=== PATIENT | female | born 2000 ===

== ENCOUNTER 2023-03-31 22:20 | Emergency (ER) | payer OTHER, SELFPAY ==
--- NOTE | 2023-03-31 | ECG_ITS ---
Test Reason : SEIZURE Blood Pressure : / mmHG Vent. Rate : 112 BPM Atrial Rate : 112 BPM P-R Int : 136 ms QRS Dur : 082 ms QT Int : 340 ms P-R-T Axes : 045 033 016 degrees QTc Int : 464 ms Sinus tachycardia Nonspecific T wave abnormality Abnormal ECG No previous ECGs available Referred By: Generic ED Physician Electronically Signed By:KASSANDRA BROCK
[2023-03-31 22:31] VITALS: BP 138/87; PULSE 111; RESP 20; TEMP 37; O2SAT 99; BMI 37.2
[2023-03-31 22:42] LABS: Glucose, Whole Blood 260 mg/dL (60-115)
[2023-03-31 22:53] LABS: MANUAL DIFF FLAG NO
[2023-03-31 22:55] LABS: Basophils Absolute Auto 0.1 X10*3/uL (0.0-0.2); Basophils Percent Auto 0.4 % (0-2); Eosinophils Absolute Auto 0.1 X10*3/uL (0.0-0.4); Eosinophils Percent Auto 0.8 % (0-4); Hematocrit 38.9 % (37.0-47.0); Imm Gran Abs Auto 0.04 X10*3/uL (0.00-0.03); Imm Gran Pct Auto 0.3 % (0.0-0.4); Lymphocytes Percent Auto 27.1 % (20-40); Mean Corpuscular HGB Conc 33.4 g/dl (31.0-35.0); Mean Corpuscular Hemoglobin 28.9 pg (27.0-33.0); Mean Corpuscular Volume 86.4 fL (80.0-98.0); Mean Platelet Volume 12.4 fL (9.4-12.3); Monocytes Absolute Auto 0.8 X10*3/uL (0.1-1.2); Monocytes Percent Auto 5.5 % (2-11); Neutrophils Absolute Auto 9.7 x10*3/uL (2.0-8.3); Neutrophils Percent Auto 65.9 % (45-73); Platelet Count 314 X10*3/uL (160-400); Red Cell Distribution Width 12.8 % (11.0-16.0); White Blood Count 14.7 X10*3/uL (4.8-10.8)
[2023-03-31 22:57] LABS: VBG Base Excess 1.7 mmol/L; VBG HCO3 26 mmol/L (22-26); VBG pCO2 42 mmHg; VBG pO2 49 mmHg
[2023-03-31 22:57] LABS: Venous Blood Gas Refer to POC result
[2023-03-31 23:07] LABS: Glucose, Whole Blood 231 mg/dL (60-115)
[2023-03-31 23:12] LABS: Lactic Acid 2.5 mmol/L (0.5-2.0)
--- NOTE | 2023-03-31 23:13 | ED.SEIZURE ---
HPI - Seizure General Chief Complaint: Seizure Stated Complaint: seizures Time Seen by Provider: 03/31/23 22:52 History of Present Illness HPI Narrative: patient is a 29 with a history of seizures. Witness by roommate to have a seizure. Patient is not awake during that time had shaking in the right side for the bystander. She has a history of diabetes. Baseline is on Tri see the 80 units twice a day. On top of it patient takes 72 units of Humalog with each meal. Patient's family gave her 80 units of insulin after noticing the sugar to be high high. Patient unable to give detailed stated that she normally gets seizures but is not on any seizure medication. She has been evaluated by [facility] in the past. Her neurologist is Dr. Momin At [facility] [place]. Patient denies any pain on urination. Related Data Allergies Allergy/AdvReac Type Severity Reaction Status Date / Time No Known Allergies Allergy Verified 03/31/23 22:30 [No Known Allergies*] Review of Systems Review of Systems: Positive generalized malaise Yes all other systems are reviewed and are negative [facility] Past Medical History Attestation statement: The following information was validated with the patient. Social History Social History Advance Directives: No Advance Directives Information Provided: Yes Physical Exam Vital Signs: Vital Signs: Last Vital Signs Temp 98.6 F 03/31/23 22:31 Pulse 111 H 03/31/23 22:31 Resp 20 03/31/23 22:31 BP 138/87 03/31/23 22:31 Pulse Ox 99 03/31/23 22:31 O2 Del Method Room Air 03/31/23 22:31 BMI result Body Mass Index 37.2 Appearance: Alert. Oriented X3. No acute distress. Eyes: Pupils equal, round and reactive to light. ENT: Pharynx normal. Neck: Normal inspection. Neck supple. No lymph nodes noted. No crepitus CVS: Normal heart rate and rhythm. Pulses normal. Normal S1 and S2 Respiratory: No respiratory distress. Breath sounds normal. No Wheezing. No rales Abdomen: Soft and nontender. No rigidity. No distention. good BS x4 Skin: Skin warm and dry. Normal skin color. Normal skin turgor. Extremities: No lower extremity edema. Neurovascular intact to all extremities. No Lacerations. No Rash Neuro: Oriented X 3. No motor deficit. No sensory deficit. Moving all extermities. No slurred speech Medications Administered Discontinued Medications Generic Name Dose Route Start Last Admin Trade Name Marcellus PRN Reason Stop Dose Admin Sodium Chloride 1,000 mls @ 999 mls/hr 03/31/23 23:15 04/01/23 00:19 Ns IV 04/01/23 00:15 Infused .Q1H1M DARON Infusion Sodium Chloride 1,000 mls @ 999 mls/hr 03/31/23 23:15 04/01/23 00:19 Ns IV 04/01/23 00:15 Infused .Q1H1M DARON Infusion Medical Decision Making Medical Decision Making MDM Narrative: Patient had questionable seizure on a daily basis per her. She has seen a neurologist at [facility]. Normally goes to [facility] [place]. However patient had not been on any medication. Per old record was obtained from [facility] after consent was obtained. She had had multiple CT scan done at [facility] [place] there were all negative. Patient had multiple prolactin level done all were negative except for 1. had MRI done which were negative. Had E 48 hour EEG done no epileptic foci was noted. Patient had a diagnosis of nonepileptic seizure. Her electrolytes here were normal. Patient's lactate was 2.4. Not consistent with having a grand mal seizure. Patient fair appearing no distress. Mental status back to baseline. Electrolytes unremarkable. Will discharge patient home. Will nevertheless place patient on seizure precaution. Have patient follow-up with her neurologist on an outpatient basis. More likely patient has nonepileptic seizure causing her symptoms. Differential Diagnosis Differential Diagnoses: The differential diagnosis associated with the presentation includes Seizure, electrolyte disturbance, nonepileptic seizures Admission/Observation Consideration of admission/observation: Escalation of care including admission/observation considered no need for admission after old record was obtained Lab Data [facility] Lab Attestation statement: I reviewed the patient's lab results. 03/31/23 22:44 03/31/23 22:44 Labs: Lab Results 03/31/23 03/31/23 03/31/23 Range/Units 22:30 22:44 22:44 WBC 14.7 H (4.8-10.8) X10*3/uL RBC 4.50 (4.20-5.50) X10*6/uL Hgb 13.0 (12.0-16.0) g/dl Hct 38.9 (37.0-47.0) % MCV 86.4 (80.0-98.0) fL MCH 28.9 (27.0-33.0) pg MCHC 33.4 (31.0-35.0) g/dl RDW 12.8 (11.0-16.0) % Plt Count 314 (160-400) X10*3/uL MPV 12.4 H (9.4-12.3) fL Immature Gran % (Auto) 0.3 (0.0-0.4) % Neut % (Auto) 65.9 (45-73) % Lymph % (Auto) 27.1 (20-40) % [place] % (Auto) 5.5 (2-11) % Eos % (Auto) 0.8 (0-4) % Baso % (Auto) 0.4 (0-2) % Lymph # (Auto) 4.0 (1.2-4.9) X10*3/uL [place] # (Auto) 0.8 (0.1-1.2) X10*3/uL Eos # (Auto) 0.1 (0.0-0.4) X10*3/uL Baso # (Auto) 0.1 (0.0-0.2) X10*3/uL Abs Immat Gran (auto) 0.04 H (0.00-0.03) X10*3/uL Absolute Neuts (auto) 9.7 H (2.0-8.3) x10*3/uL Absolute Nucleated RBC 0.000 (0.0-0.012) X10*3/uL Nucleated RBC % (auto) 0.0 (0.0-0.2) /100WBC VBG pH (7.32-7.43) VBG pCO2 mmHg VBG pO2 mmHg VBG HCO3 (22-26) mmol/L VBG O2 Saturation % VBG Base Excess mmol/L Sodium 138 (135-145) mmol/L Potassium 3.5 (3.3-5.1) mmol/L Chloride 102 (96-108) mmol/L Carbon Dioxide 25 (22-29) mmol/L Anion Gap 15 (12-20) BUN 9 (9-16) mg/dL Creatinine 0.79 (0.5-1.4) mg/dL Estim Creat Clear Calc 128.4 Estimated GFR > 60 POC Glucose 260 H (60-115) mg/dL Random Glucose 285 H (60-115) mg/dL Lactic Acid (0.5-2.0) mmol/L Lactic Acid F/U @ 2Hr (0.5-2.0) mmol/L Calcium 10.1 (8.4-10.2) mg/dL Total Bilirubin 0.2 (0.0-1.0) mg/dL AST 69 H (5-31) U/L ALT 63 H (0-31) U/L Alkaline Phosphatase 111 (39-117) U/L Total Protein 7.8 (6.5-8.0) g/dL Albumin 3.9 (3.5-5.0) g/dL Beta HCG, Quant mIU/mL 03/31/23 03/31/23 03/31/23 Range/Units 22:44 22:44 22:49 WBC (4.8-10.8) X10*3/uL RBC (4.20-5.50) X10*6/uL Hgb (12.0-16.0) g/dl Hct (37.0-47.0) % MCV (80.0-98.0) fL MCH (27.0-33.0) pg MCHC (31.0-35.0) g/dl RDW (11.0-16.0) % Plt Count (160-400) X10*3/uL MPV (9.4-12.3) fL Immature Gran % (Auto) (0.0-0.4) % Neut % (Auto) (45-73) % Lymph % (Auto) (20-40) % [place] % (Auto) (2-11) % Eos % (Auto) (0-4) % Baso % (Auto) (0-2) % Lymph # (Auto) (1.2-4.9) X10*3/uL [place] # (Auto) (0.1-1.2) X10*3/uL Eos # (Auto) (0.0-0.4) X10*3/uL Baso # (Auto) (0.0-0.2) X10*3/uL Abs Immat Gran (auto) (0.00-0.03) X10*3/uL Absolute Neuts (auto) (2.0-8.3) x10*3/uL Absolute Nucleated RBC (0.0-0.012) X10*3/uL Nucleated RBC % (auto) (0.0-0.2) /100WBC VBG pH 7.40 (7.32-7.43) VBG pCO2 42 mmHg VBG pO2 49 mmHg VBG HCO3 26 (22-26) mmol/L VBG O2 Saturation 78.0 % VBG Base Excess 1.7 mmol/L Sodium (135-145) mmol/L Potassium (3.3-5.1) mmol/L Chloride (96-108) mmol/L Carbon Dioxide (22-29) mmol/L Anion Gap (12-20) BUN (9-16) mg/dL Creatinine (0.5-1.4) mg/dL Estim Creat Clear Calc Estimated GFR POC Glucose (60-115) mg/dL Random Glucose (60-115) mg/dL Lactic Acid 2.5 H* (0.5-2.0) mmol/L Lactic Acid F/U @ 2Hr (0.5-2.0) mmol/L Calcium (8.4-10.2) mg/dL Total Bilirubin (0.0-1.0) mg/dL AST (5-31) U/L ALT (0-31) U/L Alkaline Phosphatase (39-117) U/L Total Protein (6.5-8.0) g/dL Albumin (3.5-5.0) g/dL Beta HCG, Quant < 2 mIU/mL 03/31/23 04/01/23 04/01/23 Range/Units 23:04 00:44 01:06 WBC (4.8-10.8) X10*3/uL RBC (4.20-5.50) X10*6/uL Hgb (12.0-16.0) g/dl Hct (37.0-47.0) % MCV (80.0-98.0) fL MCH (27.0-33.0) pg MCHC (31.0-35.0) g/dl RDW (11.0-16.0) % Plt Count (160-400) X10*3/uL MPV (9.4-12.3) fL Immature Gran % (Auto) (0.0-0.4) % Neut % (Auto) (45-73) % Lymph % (Auto) (20-40) % [place] % (Auto) (2-11) % Eos % (Auto) (0-4) % Baso % (Auto) (0-2) % Lymph # (Auto) (1.2-4.9) X10*3/uL [place] # (Auto) (0.1-1.2) X10*3/uL Eos # (Auto) (0.0-0.4) X10*3/uL Baso # (Auto) (0.0-0.2) X10*3/uL Abs Immat Gran (auto) (0.00-0.03) X10*3/uL Absolute Neuts (auto) (2.0-8.3) x10*3/uL Absolute Nucleated RBC (0.0-0.012) X10*3/uL Nucleated RBC % (auto) (0.0-0.2) /100WBC VBG pH (7.32-7.43) VBG pCO2 mmHg VBG pO2 mmHg VBG HCO3 (22-26) mmol/L VBG O2 Saturation % VBG Base Excess mmol/L Sodium (135-145) mmol/L Potassium (3.3-5.1) mmol/L Chloride (96-108) mmol/L Carbon Dioxide (22-29) mmol/L Anion Gap (12-20) BUN (9-16) mg/dL Creatinine (0.5-1.4) mg/dL Estim Creat Clear Calc Estimated GFR POC Glucose 231 H 110 (60-115) mg/dL Random Glucose (60-115) mg/dL Lactic Acid (0.5-2.0) mmol/L Lactic Acid F/U @ 2Hr 1.4 (0.5-2.0) mmol/L Calcium (8.4-10.2) mg/dL Total Bilirubin (0.0-1.0) mg/dL AST (5-31) U/L ALT (0-31) U/L Alkaline Phosphatase (39-117) U/L Total Protein (6.5-8.0) g/dL Albumin (3.5-5.0) g/dL Beta HCG, Quant mIU/mL Independent Interpretation I performed an independent interpretation of an: EKG Interpretation: sinus heart rate is 110 GA QRS QTC within normal limits there is LVH noted. Independent Historian Clinical information obtained from an independent historian. History obtained from or confirmed by: Spouse External Record Review External record reviewed: Office record and Outside ED record Patient's old record from [facility] was reviewed Chronic Conditions history of nonepileptic seizure Discharge Plan Discharge Clinical Impression: Generalized seizure Patient Disposition: Home, Self-Care Instructions: Recurrent Seizures in Adults (ED) Additional Instructions: no driving. No swimming no activities of [place] danger have a seizure at that time. Referrals: Physician,Unknown J [Primary Care Provider] - ( please follow-up with your neurologist on an outpatient basis) Print Language: Filipino
[2023-03-31 23:14] LABS: Alanine Aminotransferase 63 U/L (0-31); Albumin Level 3.9 g/dL (3.5-5.0); Alkaline Phosphatase 111 U/L (39-117); Anion Gap 15 (12-20); Aspartate Amino Transferase 69 U/L (5-31); Bilirubin Total 0.2 mg/dL (0.0-1.0); Blood Urea Nitrogen 9 mg/dL (9-16); Calcium 10.1 mg/dL (8.4-10.2); Carbon Dioxide 25 mmol/L (22-29); Chloride 102 mmol/L (96-108); Creatinine Clr Calc Pharmacy 128.4; Estimated Glomerular Filt Rate > 60; Glucose Random 285 mg/dL (60-115); Potassium 3.5 mmol/L (3.3-5.1); Sodium 138 mmol/L (135-145); Total Protein 7.8 g/dL (6.5-8.0)
[2023-03-31] MEDS: 0.9 % Sodium Chloride 1,000 ML 999 ML IV ×2 (23:17)
[2023-03-31 23:22] LABS: HCG Quantitative < 2 mIU/mL
[2023-04-01 00:48] LABS: Glucose, Whole Blood 110 mg/dL (60-115)
[2023-04-01 00:50] LABS: Reflex Lactate? Lactic Acid Added
--- NOTE | 2023-04-01 01:03 | PC.NURSE ---
Pt given food per Dr. Mata request.
[2023-04-01 01:22] LABS: ~Lactic Acid-LAB USE ONLY 1.4 mmol/L (0.5-2.0)
[2023-04-01 02:53] VITALS: BP 122/72; PULSE 99; RESP 19; O2SAT 98
== END 2023-04-01 02:54 | disposition home or self-care (01) ==
PROVIDERS: Emergency Provider Emergency Medicine Emergency Medical Services
DX: R56.9 Unspecified convulsions (principal); R00.0 Tachycardia, unspecified; Z79.899 Other long term (current) drug therapy
CPT/HCPCS: 36415; 80053; 82803; 82947; 83605; 84702; 85025; 93005; 99284

== ENCOUNTER 2023-04-03 19:11 | Emergency (ER) | payer OTHER, SELFPAY ==
--- NOTE | ~2023-04-03 | XR_ITS ---
EXAMINATION: XR CHEST CLINICAL INFORMATION: Cough COMPARISON: None available. TECHNIQUE: 2 views of the chest were obtained. FINDINGS: The lungs are clear with no focal consolidation. No evidence of pneumothorax, pulmonary edema, or pleural effusions. The cardiomediastinal silhouette is unremarkable. No acute osseous findings. XR/XR chest 2V IMPRESSION: No acute cardiopulmonary findings.
[2023-04-03 19:13] VITALS: BP 129/90; PULSE 120; O2SAT 100
[2023-04-03 19:34] VITALS: BP 132/90; PULSE 120; RESP 20; TEMP 36.7; O2SAT 100
[2023-04-03 19:44] VITALS: BP 130/90; PULSE 120; O2SAT 100
[2023-04-03 19:46] LABS: Glucose, Whole Blood 91 mg/dL (60-115)
[2023-04-03 19:58] VITALS: BP 132/93; PULSE 126; RESP 25; TEMP 36.7; O2SAT 98; BMI 38.6
[2023-04-03 19:59] LABS: MANUAL DIFF FLAG NO
[2023-04-03 20:01] LABS: Basophils Absolute Auto 0.1 X10*3/uL (0.0-0.2); Basophils Percent Auto 0.4 % (0-2); Eosinophils Absolute Auto 0.1 X10*3/uL (0.0-0.4); Eosinophils Percent Auto 0.6 % (0-4); Hematocrit 42.3 % (37.0-47.0); Hemoglobin 13.8 g/dl (12.0-16.0); Imm Gran Abs Auto 0.08 X10*3/uL (0.00-0.03); Imm Gran Pct Auto 0.4 % (0.0-0.4); Lymphocytes Absolute Auto 3.3 X10*3/uL (1.2-4.9); Mean Corpuscular HGB Conc 32.6 g/dl (31.0-35.0); Mean Corpuscular Hemoglobin 28.1 pg (27.0-33.0); Mean Corpuscular Volume 86.2 fL (80.0-98.0); Monocytes Absolute Auto 1.2 X10*3/uL (0.1-1.2); Monocytes Percent Auto 6.4 % (2-11); Neutrophils Absolute Auto 14.5 x10*3/uL (2.0-8.3); Neutrophils Percent Auto 75.2 % (45-73); Platelet Count 338 X10*3/uL (160-400); Red Blood Count 4.91 X10*6/uL (4.20-5.50); Red Cell Distribution Width 12.8 % (11.0-16.0); White Blood Count 19.3 X10*3/uL (4.8-10.8)
[2023-04-03 20:15] LABS: Alanine Aminotransferase 61 U/L (0-31); Alkaline Phosphatase 99 U/L (39-117); Anion Gap 12 (12-20); Aspartate Amino Transferase 67 U/L (5-31); Bilirubin Total 0.3 mg/dL (0.0-1.0); Blood Urea Nitrogen 7 mg/dL (9-16); Carbon Dioxide 27 mmol/L (22-29); Chloride 100 mmol/L (96-108); Creatinine Clr Calc Pharmacy 161.5; Estimated Glomerular Filt Rate > 60; Glucose Random 87 mg/dL (60-115); Potassium 3.6 mmol/L (3.3-5.1); Sodium 135 mmol/L (135-145); Total Protein 8.2 g/dL (6.5-8.0)
[2023-04-03 20:17] LABS: Ethanol < 10 mg/dL
[2023-04-03 20:51] LABS: Appearance Urine Clear; Color Urine Yellow; Glucose Urine UA Negative (Negative); Leukocyte Esterase Urine Negative (Negative); Nitrite Urine Negative (Negative); Specific Gravity - Urine 1.015 (1.005-1.025); Urine Blood Negative (Negative); Urine Ketones Negative (Negative); Urine Protein Negative (Neg-Trace)
[2023-04-03 20:56] LABS: UPreg QC Valid YES; Urine Pregnancy NEGATIVE (NEGATIVE)
[2023-04-03] MEDS: 0.9 % Sodium Chloride 1,000 ML 999 ML IV (20:56)
[2023-04-03 20:58] LABS: Lactic Acid 1.7 mmol/L (0.5-2.0)
--- NOTE | 2023-04-03 21:00 | PC.NURSE ---
Patient more alert and oriented, ambulated to the bathroom with 1 assist. BCx2, lactic, and strep swab sent to lab. IV fluids running through 20L-AC
[2023-04-03 21:02] LABS: IDNOW Serial# 6674DD1D; Strep A Nucleic Acid Negative (Negative)
[2023-04-03 21:02] LABS: Amphetamine Screen Urine Not Detected (Not Detect); Barbiturates, Urine Not Detected (Not Detect); Benzodiazepines Screen Urine Not Detected (Not Detect); Cannabinoid Screen Urine Not Detected (Not Detect); Cocaine Screen Urine Not Detected (Not Detect); Fentanyl, urine Not Detected (Not Detect); Opiate Screen Urine Not Detected (Not Detect); Phencyclidine Screen Urine Not Detected (Not Detect)
[2023-04-03 21:04] LABS: HCG Quantitative < 2 mIU/mL
[2023-04-03 21:12] VITALS: BP 131/80; PULSE 120; RESP 25; TEMP 36.3; O2SAT 99
[2023-04-03 23:28] LABS: Thyroid Stimulating Hormone 1.09 uIU/mL (0.32-4.0)
[2023-04-03 23:33] VITALS: BP 117/84; PULSE 116; RESP 25; TEMP 36.9; O2SAT 98
--- NOTE | 2023-04-03 23:40 | ED_ITS ---
HPI - Seizure General Chief Complaint: Seizure Stated Complaint: seizure Time Seen by Provider: 04/03/23 19:51 Source: patient and other Mode of arrival: EMS History of Present Illness HPI Narrative: This is a 22-year-old female who arrives via EMS with for ports of having a migraine headache all day long, took 2 prescribed sumatriptan spit prior to the call and also had 2 tonic-clonic seizures. Patient did receive her insulin this evening and on arrival the glucose point of care was noted to be 81. Patient denies any recent illnesses and she herself endorses that she has been seen by Neurology previously but is not on any medication as the EEG was negative. At this time patient denies any GI or symptoms and once again denies any fevers or chills leading up to this event. Seizure History: Yes Related Data Allergies Allergy/AdvReac Type Severity Reaction Status Date / Time lisinopril Allergy Unknown Unknown Verified 04/03/23 19:58 Review of Systems Review of Systems: Pertinent positives and negatives as stated in HPI PMFSH Past Medical History Source: nursing notes reviewed Social History Social History Alcohol intake: never Smoked in Last 30 Days: No Use of substances other than those prescribed or required for medical reasons: No Advance Directives: No Advance Directives Information Provided: No Patient : No Physical Exam Vital Signs: Vital Signs: Last Vital Signs Temp 98.5 F 04/03/23 23:33 Pulse 116 H 04/03/23 23:33 Resp 25 H 04/03/23 23:33 BP 117/84 04/03/23 23:33 Pulse Ox 98 04/03/23 23:33 O2 Del Method Room Air 04/03/23 23:33 BMI result Body Mass Index 38.6 VITAL SIGNS: Reviewed. GENERAL: Elevated BMI, Well developed, well nourished, in no acute distress. HEAD: Normocephalic/atraumatic EYES: PERRLA, EOMI EARS: Ext canals without abnormality NOSE: Nares patent bilateral OROPHARYNX: no oral lesions noted, posterior pharynx clear NECK: Supple, no adenopathy LUNGS: Normal breath sounds. No adventitious sounds or accessory muscle use. SpO2<98> CARDIOVASCULAR: Regular rate and rhythm without noted murmurs ABDOMEN: Soft, non-tender, non-distended with bowel sounds. MUSCULOSKELETAL: No tenderness, deformities, or effusions noted on gross inspection. EXTREMITIES: No cyanosis, clubbing or edema. SKIN: Inspection of the skin reveals no rashes NEUROLOGIC: Alert and oriented x 4. Strength and sensation to light touch were grossly intact x 4. Medications Administered Discontinued Medications Generic Name Dose Route Start Last Admin Trade Name Elíasq PRN Reason Stop Dose Admin Sodium Chloride 1,000 mls @ 999 mls/hr 04/03/23 20:30 04/03/23 22:09 Ns IV 04/03/23 21:30 Infused .Q1H1M DARON Infusion Medical Decision Making Medical Decision Making MDM Narrative: 22-year-old female who is mildly postictal but otherwise is answering questions well, no focal deficits noted, will evaluate for presence infection, anemia, el ectrolyte imbalance as patient denies any emotional event that may have set off her nonepileptic seizures. In addition, I reviewed patient's chart from when she was evaluated here on 03/30 for similar presentation and reviewed the providers information regarding various workups at [facility] which include multiple CT scans and MRIs that were negative for any acute findings. EEG which was also negative. One glaring concerned that I have is that these seizure episodes have concerning features that may indicate a hypoglycemic state. I have reviewed all investigations and the leukocytosis that is observed I feel is secondary to stress response from the seizure-like activity, patient did take 2 sumatriptan stroke prior to arrival and is noted to be tachycardic, given patient's headache and concerns regarding the initial leukocytosis I did have a strep test performed which was negative. Patient also did not endorse any pharyngitis symptoms. Urinalysis is negative. Chest x-ray without evidence of pneumonia. Patient still has headache and will treat with 15 mg of Toradol and 1 tablet of Fioricet. Patient's headache has subsided will discharge her home as I do not feel that there are underlying infection/anemia/electrolyte imbalances to better explain this phenomenon and I will also agency legal counsel the patient on appropriate use of insulin. Differential Diagnosis Please see the discussion above Admission/Observation Consideration of admission/observation: Escalation of care including admission/observation considered Lab Data Please see the discussion above 04/03/23 19:52 04/03/23 19:52 Labs: Lab Results 04/03/23 04/03/23 04/03/23 Range/Units 19:41 19:52 19:52 WBC 19.3 H (4.8-10.8) X10*3/uL RBC 4.91 (4.20-5.50) X10*6/uL Hgb 13.8 (12.0-16.0) g/dl Hct 42.3 (37.0-47.0) % MCV 86.2 (80.0-98.0) fL MCH 28.1 (27.0-33.0) pg MCHC 32.6 (31.0-35.0) g/dl RDW 12.8 (11.0-16.0) % Plt Count 338 (160-400) X10*3/uL MPV 12.0 (9.4-12.3) fL Immature Gran % (Auto) 0.4 (0.0-0.4) % Neut % (Auto) 75.2 H (45-73) % Lymph % (Auto) 17.0 L (20-40) % [place] % (Auto) 6.4 (2-11) % Eos % (Auto) 0.6 (0-4) % Baso % (Auto) 0.4 (0-2) % Lymph # (Auto) 3.3 (1.2-4.9) X10*3/uL [place] # (Auto) 1.2 (0.1-1.2) X10*3/uL Eos # (Auto) 0.1 (0.0-0.4) X10*3/uL Baso # (Auto) 0.1 (0.0-0.2) X10*3/uL Abs Immat Gran (auto) 0.08 H (0.00-0.03) X10*3/uL Absolute Neuts (auto) 14.5 H (2.0-8.3) x10*3/uL Absolute Nucleated RBC 0.000 (0.0-0.012) X10*3/uL Nucleated RBC % (auto) 0.0 (0.0-0.2) /100WBC Sodium 135 (135-145) mmol/L Potassium 3.6 (3.3-5.1) mmol/L Chloride 100 (96-108) mmol/L Carbon Dioxide 27 (22-29) mmol/L Anion Gap 12 (12-20) BUN 7 L (9-16) mg/dL Creatinine 0.64 (0.5-1.4) mg/dL Estim Creat Clear Calc 161.5 Estimated GFR > 60 POC Glucose 91 (60-115) mg/dL Random Glucose 87 (60-115) mg/dL Lactic Acid (0.5-2.0) mmol/L Calcium 10.0 (8.4-10.2) mg/dL Total Bilirubin 0.3 (0.0-1.0) mg/dL AST 67 H (5-31) U/L ALT 61 H (0-31) U/L Alkaline Phosphatase 99 (39-117) U/L Total Protein 8.2 H (6.5-8.0) g/dL Albumin 4.0 (3.5-5.0) g/dL TSH 1.09 (0.32-4.0) uIU/mL Beta HCG, Quant mIU/mL Urine Color Urine Appearance Urine pH (5.0-9.0) Ur Specific [place] (1.005-1.025) Urine Protein (Neg-Trace) mg/dL Urine Glucose (UA) (Negative) mg/dL Urine Ketones (Negative) mg/dL Urine Blood (Negative) Urine Nitrite (Negative) Ur Leukocyte Esterase (Negative) Urine Test (NEGATIVE) Urine Opiates Screen (Not Detect) Urine Fentanyl Screen (Not Detect) Ur Barbiturates Screen (Not Detect) Ur Phencyclidine Scrn (Not Detect) Ur Amphetamines Screen (Not Detect) U Benzodiazepines Scrn (Not Detect) Urine Cocaine Screen (Not Detect) U Marijuana (THC) Screen (Not Detect) Ethyl Alcohol mg/dL S. pyogenes GrpA ZULY (Negative) 04/03/23 04/03/23 04/03/23 Range/Units 19:52 19:52 20:37 WBC (4.8-10.8) X10*3/uL RBC (4.20-5.50) X10*6/uL Hgb (12.0-16.0) g/dl Hct (37.0-47.0) % MCV (80.0-98.0) fL MCH (27.0-33.0) pg MCHC (31.0-35.0) g/dl RDW (11.0-16.0) % Plt Count (160-400) X10*3/uL MPV (9.4-12.3) fL Immature Gran % (Auto) (0.0-0.4) % Neut % (Auto) (45-73) % Lymph % (Auto) (20-40) % [place] % (Auto) (2-11) % Eos % (Auto) (0-4) % Baso % (Auto) (0-2) % Lymph # (Auto) (1.2-4.9) X10*3/uL [place] # (Auto) (0.1-1.2) X10*3/uL Eos # (Auto) (0.0-0.4) X10*3/uL Baso # (Auto) (0.0-0.2) X10*3/uL Abs Immat Gran (auto) (0.00-0.03) X10*3/uL Absolute Neuts (auto) (2.0-8.3) x10*3/uL Absolute Nucleated RBC (0.0-0.012) X10*3/uL Nucleated RBC % (auto) (0.0-0.2) /100WBC Sodium (135-145) mmol/L Potassium (3.3-5.1) mmol/L Chloride (96-108) mmol/L Carbon Dioxide (22-29) mmol/L Anion Gap (12-20) BUN (9-16) mg/dL Creatinine (0.5-1.4) mg/dL Estim Creat Clear Calc Estimated GFR POC Glucose (60-115) mg/dL Random Glucose (60-115) mg/dL Lactic Acid 1.7 (0.5-2.0) mmol/L Calcium (8.4-10.2) mg/dL Total Bilirubin (0.0-1.0) mg/dL AST (5-31) U/L ALT (0-31) U/L Alkaline Phosphatase (39-117) U/L Total Protein (6.5-8.0) g/dL Albumin (3.5-5.0) g/dL TSH (0.32-4.0) uIU/mL Beta HCG, Quant < 2 mIU/mL Urine Color Urine Appearance Urine pH (5.0-9.0) Ur Specific [place] (1.005-1.025) Urine Protein (Neg-Trace) mg/dL Urine Glucose (UA) (Negative) mg/dL Urine Ketones (Negative) mg/dL Urine Blood (Negative) Urine Nitrite (Negative) Ur Leukocyte Esterase (Negative) Urine Test (NEGATIVE) Urine Opiates Screen (Not Detect) Urine Fentanyl Screen (Not Detect) Ur Barbiturates Screen (Not Detect) Ur Phencyclidine Scrn (Not Detect) Ur Amphetamines Screen (Not Detect) U Benzodiazepines Scrn (Not Detect) Urine Cocaine Screen (Not Detect) U Marijuana (THC) Screen (Not Detect) Ethyl Alcohol < 10 mg/dL S. pyogenes GrpA ZULY (Negative) 04/03/23 04/03/23 04/03/23 Range/Units 20:37 20:45 20:45 WBC (4.8-10.8) X10*3/uL RBC (4.20-5.50) X10*6/uL Hgb (12.0-16.0) g/dl Hct (37.0-47.0) % MCV (80.0-98.0) fL MCH (27.0-33.0) pg MCHC (31.0-35.0) g/dl RDW (11.0-16.0) % Plt Count (160-400) X10*3/uL MPV (9.4-12.3) fL Immature Gran % (Auto) (0.0-0.4) % Neut % (Auto) (45-73) % Lymph % (Auto) (20-40) % [place] % (Auto) (2-11) % Eos % (Auto) (0-4) % Baso % (Auto) (0-2) % Lymph # (Auto) (1.2-4.9) X10*3/uL [place] # (Auto) (0.1-1.2) X10*3/uL Eos # (Auto) (0.0-0.4) X10*3/uL Baso # (Auto) (0.0-0.2) X10*3/uL Abs Immat Gran (auto) (0.00-0.03) X10*3/uL Absolute Neuts (auto) (2.0-8.3) x10*3/uL Absolute Nucleated RBC (0.0-0.012) X10*3/uL Nucleated RBC % (auto) (0.0-0.2) /100WBC Sodium (135-145) mmol/L Potassium (3.3-5.1) mmol/L Chloride (96-108) mmol/L Carbon Dioxide (22-29) mmol/L Anion Gap (12-20) BUN (9-16) mg/dL Creatinine (0.5-1.4) mg/dL Estim Creat Clear Calc Estimated GFR POC Glucose (60-115) mg/dL Random Glucose (60-115) mg/dL Lactic Acid (0.5-2.0) mmol/L Calcium (8.4-10.2) mg/dL Total Bilirubin (0.0-1.0) mg/dL AST (5-31) U/L ALT (0-31) U/L Alkaline Phosphatase (39-117) U/L Total Protein (6.5-8.0) g/dL Albumin (3.5-5.0) g/dL TSH (0.32-4.0) uIU/mL Beta HCG, Quant mIU/mL Urine Color Yellow Urine Appearance Clear Urine pH 7.0 (5.0-9.0) Ur Specific [place] 1.015 (1.005-1.025) Urine Protein Negative (Neg-Trace) mg/dL Urine Glucose (UA) Negative (Negative) mg/dL Urine Ketones Negative (Negative) mg/dL Urine Blood Negative (Negative) Urine Nitrite Negative (Negative) Ur Leukocyte Esterase Negative (Negative) Urine Test NEGATIVE (NEGATIVE) Urine Opiates Screen (Not Detect) Urine Fentanyl Screen (Not Detect) Ur Barbiturates Screen (Not Detect) Ur Phencyclidine Scrn (Not Detect) Ur Amphetamines Screen (Not Detect) U Benzodiazepines Scrn (Not Detect) Urine Cocaine Screen (Not Detect) U Marijuana (THC) Screen (Not Detect) Ethyl Alcohol mg/dL S. pyogenes GrpA ZULY Negative (Negative) 04/03/23 Range/Units 20:45 WBC (4.8-10.8) X10*3/uL RBC (4.20-5.50) X10*6/uL Hgb (12.0-16.0) g/dl Hct (37.0-47.0) % MCV (80.0-98.0) fL MCH (27.0-33.0) pg MCHC (31.0-35.0) g/dl RDW (11.0-16.0) % Plt Count (160-400) X10*3/uL MPV (9.4-12.3) fL Immature Gran % (Auto) (0.0-0.4) % Neut % (Auto) (45-73) % Lymph % (Auto) (20-40) % [place] % (Auto) (2-11) % Eos % (Auto) (0-4) % Baso % (Auto) (0-2) % Lymph # (Auto) (1.2-4.9) X10*3/uL [place] # (Auto) (0.1-1.2) X10*3/uL Eos # (Auto) (0.0-0.4) X10*3/uL Baso # (Auto) (0.0-0.2) X10*3/uL Abs Immat Gran (auto) (0.00-0.03) X10*3/uL Absolute Neuts (auto) (2.0-8.3) x10*3/uL Absolute Nucleated RBC (0.0-0.012) X10*3/uL Nucleated RBC % (auto) (0.0-0.2) /100WBC Sodium (135-145) mmol/L Potassium (3.3-5.1) mmol/L Chloride (96-108) mmol/L Carbon Dioxide (22-29) mmol/L Anion Gap (12-20) BUN (9-16) mg/dL Creatinine (0.5-1.4) mg/dL Estim Creat Clear Calc Estimated GFR POC Glucose (60-115) mg/dL Random Glucose (60-115) mg/dL Lactic Acid (0.5-2.0) mmol/L Calcium (8.4-10.2) mg/dL Total Bilirubin (0.0-1.0) mg/dL AST (5-31) U/L ALT (0-31) U/L Alkaline Phosphatase (39-117) U/L Total Protein (6.5-8.0) g/dL Albumin (3.5-5.0) g/dL TSH (0.32-4.0) uIU/mL Beta HCG, Quant mIU/mL Urine Color Urine Appearance Urine pH (5.0-9.0) Ur Specific Wheeler (1.005-1.025) Urine Protein (Neg-Trace) mg/dL Urine Glucose (UA) (Negative) mg/dL Urine Ketones (Negative) mg/dL Urine Blood (Negative) Urine Nitrite (Negative) Ur Leukocyte Esterase (Negative) Urine Test (NEGATIVE) Urine Opiates Screen Not Detected (Not Detect) Urine Fentanyl Screen Not Detected (Not Detect) Ur Barbiturates Screen Not Detected (Not Detect) Ur Phencyclidine Scrn Not Detected (Not Detect) Ur Amphetamines Screen Not Detected (Not Detect) U Benzodiazepines Scrn Not Detected (Not Detect) Urine Cocaine Screen Not Detected (Not Detect) U Marijuana (THC) Screen Not Detected (Not Detect) Ethyl Alcohol mg/dL S. pyogenes GrpA ZULY (Negative) Radiology Impression Radiologist Impression: Please see the discussion above and otherwise my interpretation is in agreement with radiology's impression Chronic Conditions Patient?s care impacted by: Diabetes Discharge Plan Discharge Clinical Impression: Psychogenic nonepileptic seizure Patient Disposition: Home, Self-Care
[2023-04-04] MEDS: Ketorolac Tromethamine 30 MG/ML VIAL 15 MG IVPUSH (00:10)
[2023-04-04] MEDS: Butalb/Acetamin/Caff 50/325/40 TABLET 1 TAB PO (00:10)
[2023-04-09 01:12] LABS: Topiramate <0.5 mcg/mL (see note)
== END 2023-04-04 01:15 | disposition home or self-care (01) ==
PROVIDERS: Emergency Provider Student in an Organized Health Care Education/Training Program
DX: R56.9 Unspecified convulsions (principal); G43.909 Migraine, unspecified, not intractable, without status migrainosus; Z79.899 Other long term (current) drug therapy
CPT/HCPCS: 36415; 71046; 80053; 80201; 80307; 81003; 81025; 82947; 83605; 84443; 84702; 85025; 87040; 87651; 96361; 96374; 99284; 99285; J1885

== ENCOUNTER 2023-04-06 13:31 | Emergency (ER) | payer OTHER, SELFPAY ==
[2023-04-06 13:36] VITALS: BP 133/85; BP 148/90; PULSE 106; PULSE 108; RESP 18; TEMP 36.9; O2SAT 97; O2SAT 99; BMI 37.7
[2023-04-06 13:45] VITALS: RESP 18
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
--- NOTE | 2023-04-06 14:57 | PC.NURSE ---
assumed care of pt. pt alert/oriented x4. pt going to CT scan, partner at bedside.
--- NOTE | 2023-04-06 15:23 | PC.NURSE ---
pt reports that when they woke up their head was very sore but is feeling better now
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
== END 2023-04-06 17:28 | disposition home or self-care (01) ==
PROVIDERS: Emergency Provider Emergency Medicine; PCP Internal Medicine
DX: R51.9 Headache, unspecified (principal)
CPT/HCPCS: 36415; 70450; 72125; 80053; 83735; 84702; 85025; 85610; 85730; 99284

== ENCOUNTER 2023-06-24 21:20 | Emergency (ER) | payer OTHER, SELFPAY ==
[2023-06-24 21:24] VITALS: BP 132/85; PULSE 120; RESP 20; TEMP 36.9; O2SAT 99; BMI 38.0
[2023-06-24 21:33] LABS: Glucose, Whole Blood 350 mg/dL (60-115)
[2023-06-24 21:39] LABS: MANUAL DIFF FLAG NO
[2023-06-24 21:48] LABS: Basophils Absolute Auto 0.1 X10*3/uL (0.0-0.2); Basophils Percent Auto 0.4 % (0-2); Eosinophils Absolute Auto 0.1 X10*3/uL (0.0-0.4); Eosinophils Percent Auto 0.6 % (0-4); Hematocrit 39.3 % (37.0-47.0); Hemoglobin 13.1 g/dl (12.0-16.0); Imm Gran Abs Auto 0.06 X10*3/uL (0.00-0.03); Imm Gran Pct Auto 0.4 % (0.0-0.4); Lymphocytes Absolute Auto 3.5 X10*3/uL (1.2-4.9); Lymphocytes Percent Auto 21.9 % (20-40); Mean Corpuscular HGB Conc 33.3 g/dl (31.0-35.0); Mean Corpuscular Hemoglobin 28.8 pg (27.0-33.0); Mean Corpuscular Volume 86.4 fL (80.0-98.0); Mean Platelet Volume 12.8 fL (9.4-12.3); Monocytes Absolute Auto 1.1 X10*3/uL (0.1-1.2); Neutrophils Absolute Auto 11.3 x10*3/uL (2.0-8.3); Neutrophils Percent Auto 69.7 % (45-73); Platelet Count 310 X10*3/uL (160-400); Red Blood Count 4.55 X10*6/uL (4.20-5.50); Red Cell Distribution Width 12.8 % (11.0-16.0); White Blood Count 16.2 X10*3/uL (4.8-10.8)
[2023-06-24 21:54] LABS: Alanine Aminotransferase 56 U/L (0-31); Albumin Level 3.8 g/dL (3.5-5.0); Alkaline Phosphatase 113 U/L (39-117); Anion Gap 15 (12-20); Aspartate Amino Transferase 72 U/L (5-31); Bilirubin Total 0.2 mg/dL (0.0-1.0); Blood Urea Nitrogen 7 mg/dL (9-16); Calcium 9.6 mg/dL (8.4-10.2); Carbon Dioxide 24 mmol/L (22-29); Chloride 99 mmol/L (96-108); Estimated Glomerular Filt Rate > 60; Glucose Random 343 mg/dL (60-115); Potassium 3.7 mmol/L (3.3-5.1); Sodium 134 mmol/L (135-145); Total Protein 7.9 g/dL (6.5-8.0)
--- NOTE | 2023-06-24 22:21 | ED.GENADULT ---
HPI - General Adult General Chief complaint: Seizure Stated complaint: High blood sugar, seizure Time Seen by Provider: 06/24/23 22:19 Source: patient Mode of arrival: ambulatory Limitations: no limitations History of Present Illness HPI narrative: Patient diabetic on heavy doses of Tresiba 90 units twice a day along with sliding scale was on Trulicity also before which never worked does get psychogenic seizures and whenever she gets dosages her blood sugar goes out of control not taking any medication for seizures blood sugar range 300-500 at home on arrival patient's blood sugar 343 no nausea no vomiting no fever Related Data Allergies Allergy/AdvReac Type Severity Reaction Status Date / Time lisinopril Allergy Unknown Unknown Verified 04/06/23 13:44 Review of Systems Review of Systems: Yes all other systems are reviewed and are negative [facility] Social History Social History Alcohol intake: never Advance Directives: No Advance Directives Information Provided: No Physical Exam ED Vital Signs: Vital Signs - 24 hr 06/24/23 21:24 06/25/23 00:54 Temperature 98.5 F Pulse Rate 120 H 105 H Respiratory Rate 20 18 Blood Pressure 132/85 125/61 Pulse Oximetry 99 97 Oxygen Delivery Method Room Air Room Air BMI result Body Mass Index 38.0 Appearance: Alert. Oriented X3. No acute distress. Eyes: PERRLA, No Nystagmus ENT: Pharynx normal. Oral Mucosa moist Neck: Normal inspection. Neck supple. CVS: Normal heart rate and rhythm. Pulses normal. Respiratory: No respiratory distress. Equal air entry bilateral, no wheezing/rales/rhonchi Abdomen: Soft and nontender. Bowel sounds are present, no mass palpable, no CVA tenderness Skin: Skin warm and dry. Normal skin color. Normal skin turgor. Extremities: No lower extremity edema. No calf tenderness Neuro: Oriented X 3. No motor deficit. No sensory deficit.No cerebellar signs , cranial nerves II-XII intact Medications Administered Discontinued Medications Generic Name Dose Route Start Last Admin Trade Name Freq PRN Reason Stop Dose Admin Sodium Chloride 1,000 mls @ 999 mls/hr 06/24/23 22:39 06/24/23 23:58 Ns IV 06/24/23 23:39 Infused .Q1H1M ONE Infusion Insulin Human Lispro 8 unit 06/24/23 22:39 06/24/23 23:57 Insulin Lispro 100 Unit/Ml 3 Ml Vial SUBCUT 06/24/23 22:40 8 unit ONCE ONE Administration Medical Decision Making Medical Decision Making [facility] Narrative: Patient with uncontrolled diabetes with heavy dose of insulin with insulin resistance advised to 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 Blood sugar improved after IV fluids and insulin in the Differential Diagnosis Differential Diagnoses: The differential diagnosis associated with the presentation includes Hyper glycemia/DKA/sepsis/ Lab Data [facility] Lab Attestation statement: I reviewed the patient's lab results. 06/24/23 21:34 06/24/23 21:34 Labs: Lab Results 06/24/23 06/24/23 06/24/23 Range/Units 21:26 21:34 22:18 WBC 16.2 H (4.8-10.8) X10*3/uL RBC 4.55 (4.20-5.50) X10*6/uL Hgb 13.1 (12.0-16.0) g/dl Hct 39.3 (37.0-47.0) % MCV 86.4 (80.0-98.0) fL MCH 28.8 (27.0-33.0) pg MCHC 33.3 (31.0-35.0) g/dl RDW 12.8 (11.0-16.0) % Plt Count 310 (160-400) X10*3/uL MPV 12.8 H (9.4-12.3) fL Immature Gran % (Auto) 0.4 (0.0-0.4) % Neut % (Auto) 69.7 (45-73) % Lymph % (Auto) 21.9 (20-40) % [place] % (Auto) 7.0 (2-11) % Eos % (Auto) 0.6 (0-4) % Baso % (Auto) 0.4 (0-2) % Lymph # (Auto) 3.5 (1.2-4.9) X10*3/uL [place] # (Auto) 1.1 (0.1-1.2) X10*3/uL Eos # (Auto) 0.1 (0.0-0.4) X10*3/uL Baso # (Auto) 0.1 (0.0-0.2) X10*3/uL Abs Immat Gran (auto) 0.06 H (0.00-0.03) X10*3/uL Absolute Neuts (auto) 11.3 H (2.0-8.3) x10*3/uL Absolute Nucleated RBC 0.000 (0.0-0.012) X10*3/uL Nucleated RBC % (auto) 0.0 (0.0-0.2) /100WBC Sodium 134 L (135-145) mmol/L Potassium 3.7 (3.3-5.1) mmol/L Chloride 99 (96-108) mmol/L Carbon Dioxide 24 (22-29) mmol/L Anion Gap 15 (12-20) BUN 7 L (9-16) mg/dL Creatinine 0.82 (0.5-1.4) mg/dL Estim Creat Clear Calc 124.0 Estimated GFR > 60 POC Glucose 350 H* 303 H (60-115) mg/dL Random Glucose 343 H (60-115) mg/dL Calcium 9.6 (8.4-10.2) mg/dL Total Bilirubin 0.2 (0.0-1.0) mg/dL AST 72 H (5-31) U/L ALT 56 H (0-31) U/L Alkaline Phosphatase 113 (39-117) U/L Total Protein 7.9 (6.5-8.0) g/dL Albumin 3.8 (3.5-5.0) g/dL Urine Color Urine Appearance Urine pH (5.0-9.0) Ur Specific [place] (1.005-1.025) Urine Protein (Neg-Trace) mg/dL Urine Glucose (UA) (Negative) mg/dL Urine Ketones (Negative) mg/dL Urine Blood (Negative) Urine Nitrite (Negative) Ur Leukocyte Esterase (Negative) Urine RBC (0-2) /HPF Urine WBC (0-5) /HPF Ur Squamous Epith Cells (0-2) /HPF Urine Bacteria (None Seen) Hyaline Casts (0-2) /LPF Urine Test (NEGATIVE) 06/24/23 06/25/23 Range/Units 23:28 00:56 WBC (4.8-10.8) X10*3/uL RBC (4.20-5.50) X10*6/uL Hgb (12.0-16.0) g/dl Hct (37.0-47.0) % MCV (80.0-98.0) fL MCH (27.0-33.0) pg MCHC (31.0-35.0) g/dl RDW (11.0-16.0) % Plt Count (160-400) X10*3/uL MPV (9.4-12.3) fL Immature Gran % (Auto) (0.0-0.4) % Neut % (Auto) (45-73) % Lymph % (Auto) (20-40) % [place] % (Auto) (2-11) % Eos % (Auto) (0-4) % Baso % (Auto) (0-2) % Lymph # (Auto) (1.2-4.9) X10*3/uL [place] # (Auto) (0.1-1.2) X10*3/uL Eos # (Auto) (0.0-0.4) X10*3/uL Baso # (Auto) (0.0-0.2) X10*3/uL Abs Immat Gran (auto) (0.00-0.03) X10*3/uL Absolute Neuts (auto) (2.0-8.3) x10*3/uL Absolute Nucleated RBC (0.0-0.012) X10*3/uL Nucleated RBC % (auto) (0.0-0.2) /100WBC Sodium (135-145) mmol/L Potassium (3.3-5.1) mmol/L Chloride (96-108) mmol/L Carbon Dioxide (22-29) mmol/L Anion Gap (12-20) BUN (9-16) mg/dL Creatinine (0.5-1.4) mg/dL Estim Creat Clear Calc Estimated GFR POC Glucose 254 H (60-115) mg/dL Random Glucose (60-115) mg/dL Calcium (8.4-10.2) mg/dL Total Bilirubin (0.0-1.0) mg/dL AST (5-31) U/L ALT (0-31) U/L Alkaline Phosphatase (39-117) U/L Total Protein (6.5-8.0) g/dL Albumin (3.5-5.0) g/dL Urine Color Yellow Urine Appearance Clear Urine pH 6.5 (5.0-9.0) Ur Specific [place] >= 1.030 H (1.005-1.025) Urine Protein Negative (Neg-Trace) mg/dL Urine Glucose (UA) >=1000 H (Negative) mg/dL Urine Ketones Negative (Negative) mg/dL Urine Blood Negative (Negative) Urine Nitrite Negative (Negative) Ur Leukocyte Esterase Negative (Negative) Urine RBC 0-2 (0-2) /HPF Urine WBC 0-5 (0-5) /HPF Ur Squamous Epith Cells 0-2 (0-2) /HPF Urine Bacteria None Seen (None Seen) Hyaline Casts 0-2 (0-2) /LPF Urine Test NEGATIVE (NEGATIVE) Discharge Plan Discharge Clinical Impression: Hyperglycemia due to diabetes mellitus, Psychogenic nonepileptic seizure Patient Disposition: Home, Self-Care Instructions: Diabetic Hyperglycemia (ED) Additional Instructions: Continue taking your insulin and Humalog on sliding scale and follow up with your legal billing analyst Drink plenty of fluids
[2023-06-24 22:22] LABS: Glucose, Whole Blood 303 mg/dL (60-115)
[2023-06-24] MEDS: 0.9 % Sodium Chloride 1,000 ML 999 ML IV (22:47)
[2023-06-24 23:45] LABS: Appearance Urine Clear; Color Urine Yellow; Glucose Urine UA >=1000 mg/dL (Negative); Leukocyte Esterase Urine Negative (Negative); Nitrite Urine Negative (Negative); PH 6.5 (5.0-9.0); Specific Gravity - Urine >= 1.030 (1.005-1.025); UMIC TRIGGER UACC YES; Urine Blood Negative (Negative); Urine Ketones Negative (Negative); Urine Protein Negative (Neg-Trace)
[2023-06-24 23:46] LABS: UPreg QC Valid YES; Urine Pregnancy NEGATIVE (NEGATIVE)
[2023-06-24] MEDS: Insulin Lispro 100 UNIT/ML 3 ML VIAL 8 UNIT SUBCUT (23:57)
[2023-06-25 00:30] LABS: Bacteria Urine None Seen (None Seen); Hyaline Casts Urine 0-2 /LPF (0-2); RBC Urine 0-2 /HPF (0-2); Squamous Epithelial Cell Urine 0-2 /HPF (0-2); WBC Urine 0-5 /HPF (0-5)
[2023-06-25 00:54] VITALS: BP 125/61; PULSE 105; RESP 18; O2SAT 97
[2023-06-25 01:06] LABS: Glucose, Whole Blood 254 mg/dL (60-115)
--- NOTE | 2023-06-25 01:23 | MHC.EDTECH ---
POC done and results reported to RN
[2023-06-25] MEDS: Insulin Lispro 100 UNIT/ML 3 ML VIAL 6 UNIT SUBCUT (01:28)
[2023-06-25 01:31] VITALS: BP 160/69; PULSE 83; RESP 15; O2SAT 97
[2023-06-25 02:25] LABS: Glucose, Whole Blood 232 mg/dL (60-115)
== END 2023-06-25 02:24 | disposition home or self-care (01) ==
PROVIDERS: Emergency Provider Internal Medicine
DX: R56.9 Unspecified convulsions (principal); E11.65 Type 2 diabetes mellitus with hyperglycemia; R11.2 Nausea with vomiting, unspecified; Z79.4 Long term (current) use of insulin; Z79.899 Other long term (current) drug therapy
CPT/HCPCS: 36415; 80053; 81001; 81025; 82947; 85025; 96360; 99284; 99285

== ENCOUNTER 2023-07-11 17:39 | Emergency (ER) | payer OTHER, SELFPAY ==
[2023-07-11 17:57] VITALS: BP 134/82; PULSE 112; RESP 18; TEMP 37.4; O2SAT 100; BMI 38.1
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
--- NOTE | 2023-07-11 19:53 | PC.NURSE ---
pt medicated per provider order.
== END 2023-07-11 20:10 | disposition home or self-care (01) ==
PROVIDERS: Emergency Provider Emergency Medicine
DX: S06.0X0A Concussion without loss of consciousness, initial encounter (principal); W50.0XXA Accidental hit or strike by another person, initial encounter; E11.9 Type 2 diabetes mellitus without complications; Y93.9 Activity, unspecified; Y92.9 Unspecified place or not applicable; Y99.9 Unspecified external cause status
CPT/HCPCS: 96372; 99283; 99284; J1885

== ENCOUNTER 2023-08-12 18:54 | Emergency (ER) | payer OTHER, SELFPAY ==
--- NOTE | ~2023-08-12 | XR_ITS ---
EXAMINATION: XR LUMBOSACRAL SPINE CLINICAL INFORMATION: Pain COMPARISON: None available. TECHNIQUE: Three views of the lumbosacral spine. FINDINGS: Transitional vertebra at the lumbosacral junction with likely partial sacralization of L5. Otherwise the bones are normal anatomic alignment with no acute fracture or spondylolisthesis. Vertebral body heights and disc heights are otherwise preserved. Bowel gas pattern unremarkable XR/XR lumbar spine 2-3V IMPRESSION: Transitional vertebra at the lumbosacral junction with likely partial sacralization of L5.
--- NOTE | 2023-08-12 20:32 | ED_ITS ---
HPI - General Adult General Chief complaint: Back Pain/Injury Stated complaint: lower back pain Time Seen by Provider: 08/12/23 22:10 Source: patient Mode of arrival: ambulatory Limitations: no limitations History of Present Illness HPI narrative: 23-year-old female who presents emergency department for evaluation of lower back pain x2 days. She states initially the pain was intermittent but today it became constant. She describes the pain as sharp pain she points to her bilateral flank area when asked to localize the pain. The pain is constant and is 9/10. She did have dysuria and frequency with no urgency. She had associated nausea with no vomiting. She states she took ibuprofen with no relief for pain. Patient states she had similar symptoms several months ago and was treated with antibiotics, she does not know the antibiotic that she took at that time. Related Data Previous Rx's Medication Instructions Recorded cyclobenzaprine 5 mg tablet 5 mg PO TID PRN muscle spasm #10 07/11/23 tabs ketorolac 10 mg tablet 10 mg PO TID PRN pain #10 tabs 07/11/23 ondansetron 4 mg disintegrating 4 mg PO Q6H PRN nausea and 07/11/23 tablet vomiting #14 tabs acetaminophen 500 mg tablet 1,000 mg (2 x 500 mg) PO Q6H PRN 08/12/23 (Tylenol Extra Strength) fever or pain #20 tabs cefuroxime axetil 250 mg tablet 250 mg PO Q12H 7 days #14 tabs 08/12/23 oxycodone 5 mg tablet 5 mg PO Q6H PRN pain #10 tabs 08/12/23 Allergies Allergy/AdvReac Type Severity Reaction Status Date / Time lisinopril Allergy Unknown Unknown Verified 04/06/23 13:44 Review of Systems 2 Review of Systems: Yes all other systems are reviewed and are negative REPLACED BY [facility] Past Medical History REPLACED BY [facility] Narrative: Social history: Diabetes mellitus, hypertension, seizure, high cholesterol. Social history: She denies tobacco, alcohol and drug use. Medical History Hyperglycemia due to diabetes mellitus Psychogenic nonepileptic seizure Social History Social History Alcohol intake: never Smoked in Last 30 Days: No Use of substances other than those prescribed or required for medical reasons: No Advance Directives: No Advance Directives Information Provided: Yes Patient : No Physical Exam ED Vital Signs: Vital Signs - 24 hr 08/12/23 20:33 08/12/23 21:37 08/12/23 21:48 Temperature 98.8 F 100.6 F H Pulse Rate 142 H 135 H 133 H Respiratory Rate 20 20 Blood Pressure 131/65 133/87 Pulse Oximetry 99 Oxygen Delivery Method Room Air Room Air 08/12/23 22:31 Temperature 98.8 F Pulse Rate 132 H Respiratory Rate 18 Blood Pressure 136/87 Pulse Oximetry 98 Oxygen Delivery Method Room Air BMI result Body Mass Index 37.9 Vital signs did reveal an elevated temperature of 100.6 degrees with an elevated pulse of 135 Exam General: Awake, alert in no distress Head: Normocephalic, atraumatic EENT: PERRL, Lids normal, sclera normal, conjunctiva normal, nose normal , ears normal, throat without erythema or exudates Neck: Supple, no adenopathy, no trachea midline or C-spine tenderness Lung: breath sounds symmetric, no wheezing, rales or rhonchi Chest: symmetric movement, nontender Heart: regular rate and rhythm, normal S1, S2 no murmurs or rubs Abdomen: soft, non-tender, nondistended, normal bowel sounds Back: no vertebral tenderness, no CVAT Extremities: no deformities, moves all extremities symmetrically Skin: no rashes, no lesion, normal color and warmth Neuro: Awake, alert, oriented, normal speech, cranial nerves intact, moves all extremities symmetrically Psych: Pleasant, cooperative Course Course Course Narrative: RME- 23 year old female presents for evaluation of lower back pain for the last 2 days. Denies any urinary symptoms. Plan for labs, UA, xray Medical Decision Making Medical Decision Making MDM Narrative: 23 female with history of diabetes mellitus, hypertension, seizures, high cholesterol who presents emergency department for evaluation of bilateral lower flank pain x2 days initially intermittent but not constant, pain was 9/10. Patient had associated fever, dysuria and frequency. She also had nausea with no vomiting. Patient states she had similar symptoms 2 months prior was consistent with urinary tract infection she was treated with antibiotics, she does not recall the antibiotic that she took. Physical examination did reveal an elevated pulse and elevated temperature. Patient had no suprapubic tenderness or CVA tenderness. Following evaluation was ordered: CBC, BMP, urinalysis, urine test x-rays lumbar sacral spine 22:36 Laboratory evaluation was concerning [place] [address] and at urinalysis positive for RBCs and leukocyte esterase with microscopic showing greater than 50 WBCs and 3+ bacteria. Urine test was negative Patient's presentation symptoms are consistent with a urinary tract infection, I do not think that she has pyelonephritis since she did not have significant CVA tenderness and she does not evidence for sepsis. Patient was treated with cefuroxime 250 mg orally, Tylenol 975 mg orally and oxycodone 5 mg orally. She was prescribed cefuroxime 250 mg q.12 hours x7 days, Tylenol and oxycodone for pain and fever. She was given printed and verbal instructions discharged home Differential Diagnosis Differential Diagnoses: The differential diagnosis associated with the presentation includes 22:36 Musculoskeletal pain, urinary tract infection, pyelonephritis, pneumonia Admission/Observation Consideration of admission/observation: Escalation of care including admission/observation considered Lab Data MDM Lab Attestation statement: I reviewed the patient's lab results. My independent interpretation patient's laboratory evaluation is as follows: WBC elevated 19,200 with a left shift 70 neutrophils. Glucose elevated 117. Urinalysis positive for blood and leukocyte esterase. Microscopic revealed 3-5 RBCs, greater than 50 WBCs and 3+ bacteria. Urine test was negative. 08/12/23 21:13 08/12/23 21:13 Labs: Lab Results 08/12/23 08/12/23 Range/Units 20:59 21:13 WBC 19.2 H (4.8-10.8) X10*3/uL RBC 4.88 (4.20-5.50) X10*6/uL Hgb 13.8 (12.0-16.0) g/dl Hct 41.7 (37.0-47.0) % MCV 85.5 (80.0-98.0) fL MCH 28.3 (27.0-33.0) pg MCHC 33.1 (31.0-35.0) g/dl RDW 12.4 (11.0-16.0) % Plt Count 345 (160-400) X10*3/uL MPV 11.8 (9.4-12.3) fL Immature Gran % (Auto) 0.4 (0.0-0.4) % Neut % (Auto) 78.0 H (45-73) % Lymph % (Auto) 14.0 L (20-40) % [place] % (Auto) 7.0 (2-11) % Eos % (Auto) 0.2 (0-4) % Baso % (Auto) 0.4 (0-2) % Lymph # (Auto) 2.7 (1.2-4.9) X10*3/uL [place] # (Auto) 1.4 H (0.1-1.2) X10*3/uL Eos # (Auto) 0.0 (0.0-0.4) X10*3/uL Baso # (Auto) 0.1 (0.0-0.2) X10*3/uL Abs Immat Gran (auto) 0.08 H (0.00-0.03) X10*3/uL Absolute Neuts (auto) 15.0 H (2.0-8.3) x10*3/uL Absolute Nucleated RBC 0.000 (0.0-0.012) X10*3/uL Nucleated RBC % (auto) 0.0 (0.0-0.2) /100WBC Sodium 138 (135-145) mmol/L Potassium 3.6 (3.3-5.1) mmol/L Chloride 100 (96-108) mmol/L Carbon Dioxide 27 (22-29) mmol/L Anion Gap 15 (12-20) BUN 8 L (9-16) mg/dL Creatinine 0.73 (0.5-1.4) mg/dL Estim Creat Clear Calc 139.1 Estimated GFR > 60 POC Glucose 108 (60-115) mg/dL Random Glucose 117 H (60-115) mg/dL Calcium 10.2 D (8.4-10.2) mg/dL Urine Color Yellow Urine Appearance Clear Urine pH 7.0 (5.0-9.0) Ur Specific [place] 1.015 (1.005-1.025) Urine Protein Trace (Neg-Trace) mg/dL Urine Glucose (UA) 100 H (Negative) mg/dL Urine Ketones Negative (Negative) mg/dL Urine Blood Small (1+) H (Negative) Urine Nitrite Negative (Negative) Ur Leukocyte Esterase Large (3+) H (Negative) Urine RBC 3-5 H (0-2) /HPF Urine WBC >50 H (0-5) /HPF Ur Squamous Epith Cells 0-2 (0-2) /HPF Urine Bacteria 3+ (None Seen) Hyaline Casts 6-10 (0-2) /LPF Urine Test NEGATIVE (NEGATIVE) Independent Interpretation I performed an independent interpretation of an: Plain X-Ray Interpretation: My a in dependent interpretation the patient's lumbar spine x-rays: No acute fracture seen Radiology Impression Discussion of test interpretation with radiology: I have reviewed the radiologist's reading. 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 Dictated By: Ezekiel Robb MD External Record Review External record reviewed: Other ([place] patient monitoring program: Patient gets gabapentin and resume a regular basis, no narcotic) Prescription Management I considered prescription management with: Pain Medication and Antibiotic Chronic Conditions Patient?s care impacted by: Diabetes and Hypertension Discharge Plan Discharge Clinical Impression: Acute flank pain Urinary tract infection Qualifiers: Urinary tract infection type: acute cystitis Fever Qualifiers: Encounter type: initial encounter Patient Disposition: Home, Self-Care Instructions: Urinary Tract Infection in Women (ED) Additional Instructions: Your blood work did reveal an elevated white blood cell count and a urine that was consistent with a urinary tract infection. The x-rays of your back were unremarkable. Take cefuroxime 250 mg pills, 1 pill every 12 hours x7 days. This is an antibiotic that should treat the urinary tract infection. Take Tylenol (acetaminophen) 500 mg pills, 2 pills every 4-6 hours as needed for pain. For pain not relieved by Tylenol take oxycodone 5 mg pills, 1 pill every 4 hours as needed for pain. Do not drive or work while taking this medication since they can cause sleepiness. Oxycodone is a narcotic medication that can be addicting. If you are concerned about addiction you can ask the pharmacist for less pills or do not get this prescription filled. Follow-up with your doctor in 2 days. Please return to the emergency department if your symptoms get worse or if you develop any symptoms that are concerning to you. Prescriptions: New cefuroxime axetil 250 mg tablet 250 mg PO Q12H 7 Days Qty: 14 0RF oxycodone 5 mg tablet 5 mg PO Q6H PRN (Reason: pain) Qty: 10 0RF Rx Instructions: Patient may request partial refill; Partial Fill upon patient request. acetaminophen [Tylenol Extra Strength] 500 mg tablet 1,000 mg PO Q6H PRN (Reason: fever or pain) Qty: 20 0RF No Action ondansetron 4 mg tablet,disintegrating 4 mg PO Q6H PRN (Reason: nausea and vomiting) Qty: 14 0RF cyclobenzaprine 5 mg tablet 5 mg PO TID PRN (Reason: muscle spasm) Qty: 10 0RF ketorolac 10 mg tablet 10 mg PO TID PRN (Reason: pain) Qty: 10 0RF
[2023-08-12 20:33] VITALS: BP 131/65; PULSE 142; RESP 20; TEMP 37.1; O2SAT 99; BMI 37.9
[2023-08-12 21:03] LABS: Glucose, Whole Blood 108 mg/dL (60-115)
[2023-08-12 21:22] LABS: MANUAL DIFF FLAG NO
[2023-08-12 21:23] LABS: Basophils Absolute Auto 0.1 X10*3/uL (0.0-0.2); Basophils Percent Auto 0.4 % (0-2); Eosinophils Percent Auto 0.2 % (0-4); Hematocrit 41.7 % (37.0-47.0); Hemoglobin 13.8 g/dl (12.0-16.0); Imm Gran Abs Auto 0.08 X10*3/uL (0.00-0.03); Imm Gran Pct Auto 0.4 % (0.0-0.4); Lymphocytes Absolute Auto 2.7 X10*3/uL (1.2-4.9); Mean Corpuscular HGB Conc 33.1 g/dl (31.0-35.0); Mean Corpuscular Hemoglobin 28.3 pg (27.0-33.0); Mean Corpuscular Volume 85.5 fL (80.0-98.0); Mean Platelet Volume 11.8 fL (9.4-12.3); Monocytes Absolute Auto 1.4 X10*3/uL (0.1-1.2); Platelet Count 345 X10*3/uL (160-400); Red Blood Count 4.88 X10*6/uL (4.20-5.50); Red Cell Distribution Width 12.4 % (11.0-16.0); White Blood Count 19.2 X10*3/uL (4.8-10.8)
[2023-08-12 21:25] LABS: Appearance Urine Clear; Color Urine Yellow; Glucose Urine UA 100 mg/dL (Negative); Leukocyte Esterase Urine Large (3+) (Negative); Nitrite Urine Negative (Negative); Specific Gravity - Urine 1.015 (1.005-1.025); UMIC TRIGGER UACC YES; Urine Blood Small (1+) (Negative); Urine Ketones Negative (Negative); Urine Protein Trace mg/dL (Neg-Trace)
[2023-08-12 21:27] LABS: UPreg QC Valid YES; Urine Pregnancy NEGATIVE (NEGATIVE)
[2023-08-12 21:37] VITALS: PULSE 135; TEMP 38.1
[2023-08-12 21:37] LABS: Anion Gap 15 (12-20); Bacteria Urine 3+ (None Seen); Blood Urea Nitrogen 8 mg/dL (9-16); Calcium 10.2 mg/dL (8.4-10.2); Carbon Dioxide 27 mmol/L (22-29); Chloride 100 mmol/L (96-108); Creatinine Clr Calc Pharmacy 139.1; Estimated Glomerular Filt Rate > 60; Glucose Random 117 mg/dL (60-115); Potassium 3.6 mmol/L (3.3-5.1); Sodium 138 mmol/L (135-145); Squamous Epithelial Cell Urine 0-2 /HPF (0-2); UACC Culture Trigger YES; WBC Urine >50 /HPF (0-5)
--- NOTE | 2023-08-12 21:39 | PC.NURSE ---
Pt brought in from the [facility] due to tachycardia. Pt noted to be febrile and tachycardic. MD notified.
[2023-08-12 21:48] VITALS: BP 133/87; PULSE 133; RESP 20
[2023-08-12 22:31] VITALS: BP 136/87; PULSE 132; RESP 18; TEMP 37.1; O2SAT 98
[2023-08-12] MEDS: Acetaminophen 325 MG TABLET 975 MG PO (22:39)
[2023-08-12] MEDS: cefuroxime axetiL 250 MG TABLET PO (22:39)
[2023-08-12] MEDS: oxyCODONE HCl Immed Release 5 MG TABLET PO (22:40)
--- NOTE | 2023-08-12 23:03 | PC.NURSE ---
pt reports hx of tachycardia. Pt medicated per MAR. Reports feeling blood sugar low, sandwich and PO fluids given.
== END 2023-08-12 23:14 | disposition home or self-care (01) ==
PROVIDERS: Physician Assistant; Emergency Provider Emergency Medicine Emergency Medical Services
DX: N30.00 Acute cystitis without hematuria (principal); M54.50 Low back pain, unspecified; R50.9 Fever, unspecified; R10.9 Unspecified abdominal pain; R30.0 Dysuria; R35.0 Frequency of micturition; Z79.899 Other long term (current) drug therapy
CPT/HCPCS: 36415; 72100; 80048; 81001; 81025; 82947; 85025; 87086; 87088; 87186; 99283; 99284

== ENCOUNTER 2023-08-30 21:23 | Emergency (ER) | payer OTHER, SELFPAY ==
--- NOTE | ~2023-08-30 | XR_ITS ---
EXAMINATION: XR CHEST CLINICAL INFORMATION: Asthma COMPARISON: 04/03/2023 TECHNIQUE: Frontal view of the chest was obtained. FINDINGS: The lungs are mildly hypoinflated. No focal consolidation is seen. No evidence of pneumothorax, pleural effusion, or pulmonary edema. The cardiomediastinal contour is unremarkable. No acute osseous findings are seen. XR/XR chest 1V IMPRESSION: Low lung volumes without acute findings.
[2023-08-30 21:46] VITALS: BP 147/89; PULSE 140; RESP 16; TEMP 36.6; O2SAT 97; BMI 37.8
[2023-08-30 22:47] LABS: Influenza A PCR NEGATIVE (Negative); Influenza B PCR NEGATIVE (Negative); Resp Syncy Virus RNA Qual PCR NEGATIVE (Negative); SARS COV2 PCR INHOUSE NEGATIVE (Negative)
[2023-08-31] LABS: MANUAL DIFF FLAG NO
[2023-08-31 00:05] LABS: Basophils Absolute Auto 0.1 X10*3/uL (0.0-0.2); Basophils Percent Auto 0.4 % (0-2); Eosinophils Absolute Auto 0.2 X10*3/uL (0.0-0.4); Eosinophils Percent Auto 0.9 % (0-4); Hematocrit 36.9 % (37.0-47.0); Hemoglobin 12.4 g/dl (12.0-16.0); Imm Gran Abs Auto 0.05 X10*3/uL (0.00-0.03); Imm Gran Pct Auto 0.3 % (0.0-0.4); Lymphocytes Absolute Auto 3.2 X10*3/uL (1.2-4.9); Lymphocytes Percent Auto 19.1 % (20-40); Mean Corpuscular HGB Conc 33.6 g/dl (31.0-35.0); Mean Corpuscular Hemoglobin 28.3 pg (27.0-33.0); Mean Corpuscular Volume 84.2 fL (80.0-98.0); Monocytes Absolute Auto 1.1 X10*3/uL (0.1-1.2); Monocytes Percent Auto 6.8 % (2-11); Neutrophils Absolute Auto 12.2 x10*3/uL (2.0-8.3); Neutrophils Percent Auto 72.5 % (45-73); Platelet Count 344 X10*3/uL (160-400); Red Blood Count 4.38 X10*6/uL (4.20-5.50); Red Cell Distribution Width 12.4 % (11.0-16.0); White Blood Count 16.8 X10*3/uL (4.8-10.8)
[2023-08-31 00:08] LABS: Appearance Urine Clear; Color Urine Yellow; Glucose Urine UA >=1000 mg/dL (Negative); Leukocyte Esterase Urine Moderate (2+) (Negative); Nitrite Urine Negative (Negative); UMIC TRIGGER UACC YES; Urine Blood Trace (Negative); Urine Ketones Negative (Negative); Urine Protein Trace mg/dL (Neg-Trace)
[2023-08-31 00:10] LABS: UPreg QC Valid YES; Urine Pregnancy NEGATIVE (NEGATIVE)
[2023-08-31 00:12] LABS: Bacteria Urine Trace (None Seen); Hyaline Casts Urine 0-2 /LPF (0-2); RBC Urine 0-2 /HPF (0-2); Squamous Epithelial Cell Urine 0-2 /HPF (0-2); UACC Culture Trigger YES; WBC Urine >50 /HPF (0-5)
[2023-08-31 00:19] LABS: Alanine Aminotransferase 33 U/L (0-31); Albumin Level 3.8 g/dL (3.5-5.0); Alkaline Phosphatase 117 U/L (39-117); Anion Gap 13 (12-20); Aspartate Amino Transferase 47 U/L (5-31); Bilirubin Total 0.5 mg/dL (0.0-1.0); Blood Urea Nitrogen 8 mg/dL (9-16); Calcium 9.6 mg/dL (8.4-10.2); Carbon Dioxide 25 mmol/L (22-29); Chloride 101 mmol/L (96-108); Creatinine Clr Calc Pharmacy 130.1; Estimated Glomerular Filt Rate > 60; Glucose Random 193 mg/dL (60-115); Potassium 3.1 mmol/L (3.3-5.1); Sodium 136 mmol/L (135-145); Total Protein 8.5 g/dL (6.5-8.0)
[2023-08-31 00:29] VITALS: BP 133/86; PULSE 128; RESP 20; TEMP 36.8; O2SAT 96
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
[2023-08-31] MEDS: Potassium Chloride ER 20 MEQ TAB.ER.PRT 40 MEQ PO (00:33)
[2023-08-31] MEDS: Amoxicillin/Potassium Clav 875 MG TABLET PO (00:33)
== END 2023-08-31 01:17 | disposition home or self-care (01) ==
PROVIDERS: Emergency Provider Emergency Medicine Emergency Medical Services; PCP Nurse Practitioner Family
DX: N39.0 Urinary tract infection, site not specified (principal); J06.9 Acute upper respiratory infection, unspecified; E87.6 Hypokalemia; R05.9 Cough, unspecified; E11.9 Type 2 diabetes mellitus without complications; Z20.822 Contact with and (suspected) exposure to COVID-19; Z20.828 Contact with and (suspected) exposure to other viral communicable diseases; Z79.899 Other long term (current) drug therapy
CPT/HCPCS: 0241U; 36415; 71045; 80053; 81001; 81003; 81025; 85025; 87086; 87088; 87186; 99283; 99284

== ENCOUNTER 2024-01-31 08:07 | Outpatient (AMB) | payer OTHER, SELFPAY ==
[2024-01-31 08:24] VITALS: BP 118/82; PULSE 120; O2SAT 98; BMI 36.4
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
== END 2024-01-31 10:09 | disposition home or self-care (01) ==
PROVIDERS: PCP Nurse Practitioner Family; Visit Provider Nurse Practitioner Family
DX: R55 Syncope and collapse (principal); R29.898 Other symptoms and signs involving the musculoskeletal system; M54.2 Cervicalgia; R06.83 Snoring; Z86.69 Personal history of other diseases of the nervous system and sense organs; G43.709 Chronic migraine without aura, not intractable, without status migrainosus; R51.9 Headache, unspecified
CPT/HCPCS: 99204

== ENCOUNTER → 2024-01-31 08:07 | Outpatient (BNVA) | payer OTHER, SELFPAY | PROVIDERS: PCP Nurse Practitioner Family; Visit Provider Nurse Practitioner Family | DX: G43.709 Chronic migraine without aura, not intractable, without status migrainosus (principal); R56.9 Unspecified convulsions; R55 Syncope and collapse; R29.898 Other symptoms and signs involving the musculoskeletal system; M54.2 Cervicalgia; Z86.69 Personal history of other diseases of the nervous system and sense organs | CPT/HCPCS: 99202 ==

== ENCOUNTER 2024-12-14 19:40 | Emergency (ER) | payer MEDICAID, SELFPAY ==
--- NOTE | ~2024-12-14 | XR_ITS ---
CLINICAL HISTORY: cough, chest pain 2 view chest x-ray Comparison: CR/SR - XR CHEST 1V - 08/30/23 23:12 EST Findings: No consolidation or effusion. Heart size is normal. No acute fracture. IMPRESSION: 1. No acute findings. This document has been electronically signed by: Hank Chopra MD on 12/14/2024 21:27:50
[2024-12-14 20:12] VITALS: BP 125/78; PULSE 115; RESP 20; TEMP 36.4; O2SAT 98; BMI 29.2
--- NOTE | 2024-12-14 20:12 | ED.GENADULT ---
HPI - General Adult General Chief complaint: General Medical Stated complaint: cough,weakness hx of seizures Time Seen by Provider: 12/15/24 00:33 Source: patient Mode of arrival: ambulatory Limitations: no limitations History of Present Illness ED Provider: DR. Stratton HPI narrative: a 24-year-old female history of diabetes type 2 controlled with insulin, Trulicity and Jardiance, presented with 1 month of generalized weakness, coughing, difficulty breathing. 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 Related Data Home Medications ?Medication ?Instructions ?Recorded ?Confirmed sumatriptan succinate 100 mg tablet mg PO 01/31/24 01/31/24 Previous Rx's ?Medication ?Instructions ?Recorded cyclobenzaprine 5 mg tablet 5 mg PO TID PRN muscle spasm #10 07/11/23 tabs ketorolac 10 mg tablet 10 mg PO TID PRN pain #10 tabs 07/11/23 ondansetron 4 mg disintegrating 4 mg PO Q6H PRN nausea and 07/11/23 tablet vomiting #14 tabs acetaminophen 500 mg tablet 1,000 mg (2 x 500 mg) PO Q6H PRN 08/12/23 (Tylenol Extra Strength) fever or pain #20 tabs cefuroxime axetil 250 mg tablet 250 mg PO Q12H 7 days #14 tabs 08/12/23 oxycodone 5 mg tablet 5 mg PO Q6H PRN pain #10 tabs 08/12/23 oxycodone 5 mg tablet 5 mg PO Q6H PRN pain #10 tabs 08/13/23 albuterol sulfate 2.5 mg/0.5 mL 2.5 mg (0.5 mL) inhalation Q4-6H 08/31/23 solution for nebulization PRN shortness of breath or wheezing #30 ea amoxicillin 875 mg-potassium 1 tab PO Q12H #14 tabs 08/31/23 clavulanate 125 mg tablet galcanezumab-gnlm 120 mg/mL 240 mg (2 mL) subcut ONCE 30 days 01/31/24 subcutaneous pen injector #2 mL (Emgality Pen) magnesium oxide 400 mg (241.3 mg 400 mg PO BEDTIME 30 days #30 tabs 10/04/24 magnesium) tablet riboflavin (vitamin B2) 400 mg 400 mg PO DAILY 30 days #30 tabs 10/04/24 tablet albuterol sulfate 2.5 mg/3 mL 2.5 mg (3 mL) inhalation Q4-6H PRN 12/15/24 (0.083 %) solution for nebulization shortness of breath or wheezing #75 mL Allergies Allergy/AdvReac Type Severity Reaction Status Date / Time lisinopril Allergy Unknown Unknown Verified 12/14/24 20:17 Review of Systems Review of Systems: All other systems are reviewed and are negative Constitutional: Reports as per HPI and Reports no additional constitutional complaints Eyes: Reports as per HPI and Reports no additional eye complaints Reports system reviewed and no additional complaints, except as documented Cardiovascular: Reports as per HPI and Reports no additional cardiovascular complaints Respiratory: Reports as per HPI and Reports no additional respiratory complaints Gastrointestinal: Reports as per HPI and Reports no additional gastrointestinal complaints Genitourinary: Reports no additional female genitourinary complaints Musculoskeletal: Reports no additional musculoskeletal complaints Skin/Breast: Reports system reviewed and no additional complaints, except as docu Psychiatric: Reports no additional psychiatric complaints Endocrine: Reports no additional endocrine complaints Hematologic/Lymphatic: Reports no additional hematologic/lymphatic complaints Allergic/Immunologic: Reports no additional allergic/immunologic complaints Reports system reviewed and no additional complaints, except as documented and Reports Abnormal speech present [facility] Past Medical History Medical History Hyperglycemia due to diabetes mellitus Psychogenic nonepileptic seizure Family History Family History Father Diabetes Heart disease Mother Diabetes Depression Sleep disorder Thyroid disease Social History Social History Alcohol intake: never Patient Tobacco Use Status: Never used Tobacco Smoked in Last 30 Days: No Use of substances other than those prescribed or required for medical reasons: No Advance Directives: No Advance Directives Information Provided: Yes Do you have a plan to hurt others: No Plan Patient : No Physical Exam ED Vital Signs: Vital Signs - 24 hr 12/14/24 20:12 12/15/24 01:48 Temperature 97.6 F 98.3 F Pulse Rate 115 H 90 Respiratory Rate 20 16 Blood Pressure 125/78 106/63 Pulse Oximetry 98 98 Oxygen Delivery Method Room Air Room Air BMI result Body Mass Index 29.2 Vital signs have been reviewed and appear to be correct. Blood pressure elevated. Heart rate Elevated. Respiratory rate normal. Temperature normal. Oxygen saturation normal. Appearance: Alert. Oriented X3. No acute distress. Head: Normal external exam. Normocephalic. Atraumatic. No Randhawa signs noted. No raccoon eyes noted Eyes: PERRLA. EOMI. Conjunctiva and sclera normal. Eyelids normal. ENT: TM's Normal. Pharynx normal. Uvula midline. Moist mucous membranes. No trismus noted. No drooling noted. No muffled voice noted. Neck: Normal inspection. Neck supple. FROM. No adenopathy. Thyroid Normal. No meningeal signs. No neck mass noted. CVS: Normal heart rate and rhythm. Heart sound normal. No murmurs noted. Pulses normal throughout. Respiratory: No respiratory distress. Painless inspiration. Breath sounds normal. No wheezes/rales/rhonchi noted. Chest nontender. No accessory muscle usage noted or decreased air movement noted. Abdomen: Soft and nontender. Bowel sounds normal in all 4 quadrants. No distention noted. No organomegaly noted. No visible injury noted. Back: No CVA tenderness. Full range of motion noted. Skin: Skin warm and dry. Normal skin color. Normal skin turgor. No rashes/lesions/lacerations noted. Extremities: No lower extremity edema. Extremities exhibit normal range of motion. Extremities nontender. Neuro: Oriented X 3. Cranial nerve exam: II-XII are grossly intact No motor deficit. No sensory deficit. Reflexes normal. Course Reevaluation(s) Reevaluation #1: Feels better after IV fluids and insulin. drink plenty of fluid and comply with her home diabetic medication with follow-up with PCP. Chest x-ray is unremarkable chest exam revealing mild wheezing. Will avoid prednisone for hyperglycemia instructed to take albuterol. Improvement of BS with fluids and insulin. Time: 04:01 Medications Administered Generic Name Dose Route Start Last Admin Trade Name Freq PRN Reason Stop Dose Admin Sodium Chloride 1,000 mls @ 999 mls/hr 12/15/24 03:10 12/15/24 03:19 Ns IV 12/15/24 04:10 999 mls/hr .Q1H1M ONE Administration Discontinued Medications Generic Name Dose Route Start Last Admin Trade Name Freq PRN Reason Stop Dose Admin Sodium Chloride 1,000 mls @ 999 mls/hr 12/15/24 00:33 12/15/24 02:22 Ns IV 12/15/24 01:33 Infused .Q1H1M ONE Infusion Insulin Human Regular 5 unit 12/15/24 00:33 12/15/24 00:52 Insulin Regular, Human 100 Unit/Ml 10 Ml Vial IVPUSH 12/15/24 00:34 5 unit ONCE ONE Administration Medical Decision Making Differential Diagnosis Differential Diagnoses: The differential diagnosis associated with the presentation includes ( Pneumonia, pneumothorax, pleural effusion, DKA, hyperglycemia, dehydration, electrolyte derangement, severe anemia , , UTI.) Admission/Observation Consideration of admission/observation: Escalation of care including admission/observation considered Lab Data MDM Lab Attestation statement: I reviewed the patient's lab results. 12/14/24 20:31 12/14/24 20:31 Labs: Lab Results 12/14/24 12/14/24 12/15/24 Range/Units 20:31 22:33 02:29 WBC 14.7 H (4.8-10.8) X10*3/uL RBC 4.77 (4.20-5.50) X10*6/uL Hgb 14.1 (12.0-16.0) g/dl Hct 40.3 (37.0-47.0) % MCV 84.5 (80.0-98.0) fL MCH 29.6 (27.0-33.0) pg MCHC 35.0 (31.0-35.0) g/dl RDW 13.4 (11.0-16.0) % Plt Count 273 (160-400) X10*3/uL MPV 13.3 H (9.4-12.3) fL Immature Gran % (Auto) 0.5 H (0.0-0.4) % Neut % (Auto) 76.1 H (45-73) % Lymph % (Auto) 17.3 L (20-40) % [place] % (Auto) 5.3 (2-11) % Eos % (Auto) 0.3 (0-4) % Baso % (Auto) 0.5 (0-2) % Lymph # (Auto) 2.5 (1.2-4.9) X10*3/uL [place] # (Auto) 0.8 (0.1-1.2) X10*3/uL Eos # (Auto) 0.0 (0.0-0.4) X10*3/uL Baso # (Auto) 0.1 (0.0-0.2) X10*3/uL Abs Immat Gran (auto) 0.08 H (0.00-0.03) X10*3/uL Absolute Neuts (auto) 11.1 H (2.0-8.3) x10*3/uL Absolute Nucleated RBC 0.000 (0.0-0.012) X10*3/uL Nucleated RBC % (auto) 0.0 (0.0-0.2) /100WBC Sodium 133 L (135-145) mmol/L Potassium 3.5 (3.3-5.1) mmol/L Chloride 95 L (96-108) mmol/L Carbon Dioxide 22 (22-29) mmol/L Anion Gap 20 (12-20) BUN 14 (9-16) mg/dL Creatinine 0.83 (0.5-1.4) mg/dL Estim Creat Clear Calc 105.9 Estimated GFR > 60 POC Glucose 472 H* (60-115) mg/dL Random Glucose 519 H* (60-115) mg/dL Calcium 9.6 (8.4-10.2) mg/dL Magnesium 1.7 (1.6-2.6) mg/dL Total Bilirubin 0.3 (0.0-1.0) mg/dL AST 14 (5-31) U/L ALT 15 (0-31) U/L Alkaline Phosphatase 106 (39-117) U/L Troponin I High Sens < 2.7 (<3.5-17.0) ng/L Total Protein 8.4 H (6.5-8.0) g/dL Albumin 3.8 (3.5-5.0) g/dL Beta HCG, Quant < 2 mIU/mL Urine Color Yellow Urine Appearance Clear Urine pH 6.0 (5.0-9.0) Ur Specific [place] >= 1.030 H (1.005-1.025) Urine Protein Negative (Neg-Trace) mg/dL Urine Glucose (UA) >=1000 H (Negative) mg/dL Urine Ketones 40 (Negative) mg/dL Urine Blood Negative (Negative) Urine Nitrite Negative (Negative) Ur Leukocyte Esterase Negative (Negative) Urine RBC 0-2 (0-2) /HPF Urine WBC 6-10 H (0-5) /HPF Ur Squamous Epith Cells 3-5 (0-2) /HPF Urine Bacteria Trace (None Seen) Hyaline Casts 0-2 (0-2) /LPF Influenza Type A (PCR) NEGATIVE (Negative) Influenza Type B (PCR) NEGATIVE (Negative) RSV RNA Qual (PCR) NEGATIVE (Negative) SARS-CoV-2 RNA (RT-PCR) NEGATIVE (Negative) 12/15/24 Range/Units 02:54 WBC (4.8-10.8) X10*3/uL RBC (4.20-5.50) X10*6/uL Hgb (12.0-16.0) g/dl Hct (37.0-47.0) % MCV (80.0-98.0) fL MCH (27.0-33.0) pg MCHC (31.0-35.0) g/dl RDW (11.0-16.0) % Plt Count (160-400) X10*3/uL MPV (9.4-12.3) fL Immature Gran % (Auto) (0.0-0.4) % Neut % (Auto) (45-73) % Lymph % (Auto) (20-40) % [place] % (Auto) (2-11) % Eos % (Auto) (0-4) % Baso % (Auto) (0-2) % Lymph # (Auto) (1.2-4.9) X10*3/uL [place] # (Auto) (0.1-1.2) X10*3/uL Eos # (Auto) (0.0-0.4) X10*3/uL Baso # (Auto) (0.0-0.2) X10*3/uL Abs Immat Gran (auto) (0.00-0.03) X10*3/uL Absolute Neuts (auto) (2.0-8.3) x10*3/uL Absolute Nucleated RBC (0.0-0.012) X10*3/uL Nucleated RBC % (auto) (0.0-0.2) /100WBC Sodium (135-145) mmol/L Potassium (3.3-5.1) mmol/L Chloride (96-108) mmol/L Carbon Dioxide (22-29) mmol/L Anion Gap (12-20) BUN (9-16) mg/dL Creatinine (0.5-1.4) mg/dL Estim Creat Clear Calc Estimated GFR POC Glucose 232 H (60-115) mg/dL Random Glucose (60-115) mg/dL Calcium (8.4-10.2) mg/dL Magnesium (1.6-2.6) mg/dL Total Bilirubin (0.0-1.0) mg/dL AST (5-31) U/L ALT (0-31) U/L Alkaline Phosphatase (39-117) U/L Troponin I High Sens (<3.5-17.0) ng/L Total Protein (6.5-8.0) g/dL Albumin (3.5-5.0) g/dL Beta HCG, Quant mIU/mL Urine Color Urine Appearance Urine pH (5.0-9.0) Ur Specific [place] (1.005-1.025) Urine Protein (Neg-Trace) mg/dL Urine Glucose (UA) (Negative) mg/dL Urine Ketones (Negative) mg/dL Urine Blood (Negative) Urine Nitrite (Negative) Ur Leukocyte Esterase (Negative) Urine RBC (0-2) /HPF Urine WBC (0-5) /HPF Ur Squamous Epith Cells (0-2) /HPF Urine Bacteria (None Seen) Hyaline Casts (0-2) /LPF Influenza Type A (PCR) (Negative) Influenza Type B (PCR) (Negative) RSV RNA Qual (PCR) (Negative) SARS-CoV-2 RNA (RT-PCR) (Negative) Independent Interpretation I performed an independent interpretation of an: Plain X-Ray ( Chest: No acute findings.) Radiology Impression Discussion of test interpretation with radiology: I have reviewed the radiologist's reading. Chronic Conditions Patient?s care impacted by: Diabetes Discharge Plan Discharge Clinical Impression: Acute hyperglycemia, Bronchitis Patient Disposition: Home, Self-Care Instructions: Diabetic Hyperglycemia (ED) Prescriptions: New albuterol sulfate 2.5 mg /3 mL (0.083 %) solution for nebulization 2.5 mg inhalation Q4-6H PRN (Reason: shortness of breath or wheezing) Qty: 75 0RF No Action magnesium oxide 400 mg (241.3 mg magnesium) tablet 400 mg PO BEDTIME 30 Days Qty: 30 6RF Rx Instructions: may hold for loose stools riboflavin (vitamin B2) 400 mg tablet 400 mg PO DAILY 30 Days Qty: 30 6RF ondansetron 4 mg tablet,disintegrating 4 mg PO Q6H PRN (Reason: nausea and vomiting) Qty: 14 0RF cyclobenzaprine 5 mg tablet 5 mg PO TID PRN (Reason: muscle spasm) Qty: 10 0RF ketorolac 10 mg tablet 10 mg PO TID PRN (Reason: pain) Qty: 10 0RF cefuroxime axetil 250 mg tablet 250 mg PO Q12H 7 Days Qty: 14 0RF oxycodone 5 mg tablet 5 mg PO Q6H PRN (Reason: pain) Qty: 10 0RF Rx Instructions: Patient may request partial refill; Partial Fill upon patient request. acetaminophen [Tylenol Extra Strength] 500 mg tablet 1,000 mg PO Q6H PRN (Reason: fever or pain) Qty: 20 0RF oxycodone 5 mg tablet 5 mg PO Q6H PRN (Reason: pain) Qty: 10 0RF Rx Instructions: Partial Fill upon patient request. amoxicillin-pot clavulanate 875-125 mg tablet 1 tab PO Q12H Qty: 14 0RF albuterol sulfate 2.5 mg/0.5 mL solution for nebulization 2.5 mg inhalation Q4-6H PRN (Reason: shortness of breath or wheezing) Qty: 30 0RF Rx Instructions: for up to 3 doses sumatriptan succinate 100 mg tablet PO Emgality Pen 120 mg/mL pen injector 240 mg subcut ONCE 30 Days Qty: 2 0RF Rx Instructions: Loading dose: 120 mg subcu injection x2 in alternate sites (total 240 mg). To be followed by maintenance dose of 120 mg subcu q.month. Referrals: Hucker,Bernadine, CAT TENDER [Primary Care Provider] - Print Language: Spanish
--- NOTE | 2024-12-14 20:13 | ECG_ITS ---
Test Reason : cp Blood Pressure : */* mmHG Vent. Rate : 115 BPM Atrial Rate : 115 BPM P-R Int : 134 ms QRS Dur : 76 ms QT Int : 332 ms P-R-T Axes : 59 43 43 degrees QTcB Int : 459 ms Sinus tachycardia Nonspecific T wave abnormality Abnormal ECG When compared with ECG of 31-Mar-2023 22:31, No significant change was found Referred By: Connie Armstrong Electronically Signed By: KASSANDRA BROCK
[2024-12-14 20:37] LABS: MANUAL DIFF FLAG NO
[2024-12-14 20:46] LABS: Basophils Absolute Auto 0.1 X10*3/uL (0.0-0.2); Basophils Percent Auto 0.5 % (0-2); Eosinophils Percent Auto 0.3 % (0-4); Hematocrit 40.3 % (37.0-47.0); Hemoglobin 14.1 g/dl (12.0-16.0); Imm Gran Abs Auto 0.08 X10*3/uL (0.00-0.03); Imm Gran Pct Auto 0.5 % (0.0-0.4); Lymphocytes Absolute Auto 2.5 X10*3/uL (1.2-4.9); Lymphocytes Percent Auto 17.3 % (20-40); Mean Corpuscular Hemoglobin 29.6 pg (27.0-33.0); Mean Corpuscular Volume 84.5 fL (80.0-98.0); Mean Platelet Volume 13.3 fL (9.4-12.3); Monocytes Absolute Auto 0.8 X10*3/uL (0.1-1.2); Monocytes Percent Auto 5.3 % (2-11); Neutrophils Absolute Auto 11.1 x10*3/uL (2.0-8.3); Neutrophils Percent Auto 76.1 % (45-73); Platelet Count 273 X10*3/uL (160-400); Red Blood Count 4.77 X10*6/uL (4.20-5.50); Red Cell Distribution Width 13.4 % (11.0-16.0); White Blood Count 14.7 X10*3/uL (4.8-10.8)
--- NOTE | 2024-12-14 20:58 | PC.NURSE ---
critical lab value - blood glucose of 519mg/dL received at this time. JUAN Braxton/charge aide, Kalyn notified/aware.
[2024-12-14 20:59] LABS: Alanine Aminotransferase 15 U/L (0-31); Albumin Level 3.8 g/dL (3.5-5.0); Alkaline Phosphatase 106 U/L (39-117); Anion Gap 20 (12-20); Aspartate Amino Transferase 14 U/L (5-31); Bilirubin Total 0.3 mg/dL (0.0-1.0); Blood Urea Nitrogen 14 mg/dL (9-16); Calcium 9.6 mg/dL (8.4-10.2); Carbon Dioxide 22 mmol/L (22-29); Chloride 95 mmol/L (96-108); Creatinine Clr Calc Pharmacy 105.9; Estimated Glomerular Filt Rate > 60; Glucose Random 519 mg/dL (60-115); Magnesium 1.7 mg/dL (1.6-2.6); Potassium 3.5 mmol/L (3.3-5.1); Sodium 133 mmol/L (135-145); Total Protein 8.4 g/dL (6.5-8.0)
[2024-12-14 21:01] LABS: HCG Quantitative < 2 mIU/mL
[2024-12-14 21:02] LABS: Troponin-I High Sensitivity < 2.7 ng/L (<3.5-17.0)
[2024-12-14 21:18] LABS: Influenza A PCR NEGATIVE (Negative); Influenza B PCR NEGATIVE (Negative); Resp Syncy Virus RNA Qual PCR NEGATIVE (Negative); SARS COV2 PCR INHOUSE NEGATIVE (Negative)
[2024-12-14 23:58] LABS: Glucose, Whole Blood 472 mg/dL (60-115)
[2024-12-15] MEDS: 0.9 % Sodium Chloride 1,000 ML 999 ML IV ×2 (00:50→03:19)
[2024-12-15] MEDS: Insulin Regular, Human 100 UNIT/ML 10 ML VIAL IVPUSH (00:52)
[2024-12-15 01:48] VITALS: BP 106/63; PULSE 90; RESP 16; TEMP 36.8; O2SAT 98
[2024-12-15 02:39] LABS: Appearance Urine Clear; Color Urine Yellow; Glucose Urine UA >=1000 mg/dL (Negative); Leukocyte Esterase Urine Negative (Negative); Nitrite Urine Negative (Negative); Specific Gravity - Urine >= 1.030 (1.005-1.025); UMIC TRIGGER UACC YES; Urine Blood Negative (Negative); Urine Ketones 40 mg/dL (Negative); Urine Protein Negative (Neg-Trace)
[2024-12-15 02:58] LABS: Glucose, Whole Blood 232 mg/dL (60-115)
[2024-12-15 03:07] LABS: Bacteria Urine Trace (None Seen); Hyaline Casts Urine 0-2 /LPF (0-2); RBC Urine 0-2 /HPF (0-2); UACC Culture Trigger YES
[2024-12-15 04:09] VITALS: BP 125/77; PULSE 101; RESP 16; TEMP 36.6; O2SAT 98
[2024-12-15 04:10] VITALS: BP 125/77; PULSE 101; RESP 16; TEMP 36.6; O2SAT 98
== END 2024-12-15 04:14 | disposition home or self-care (01) ==
PROVIDERS: Physician Assistant Medical; Emergency Provider Emergency Medicine; PCP Nurse Practitioner Family
DX: E11.65 Type 2 diabetes mellitus with hyperglycemia (principal); J40 Bronchitis, not specified as acute or chronic; R05.9 Cough, unspecified; R53.1 Weakness; R07.89 Other chest pain; R06.02 Shortness of breath; R00.0 Tachycardia, unspecified; Z79.3 Long term (current) use of hormonal contraceptives; Z79.85 Long-term (current) use of injectable non-insulin antidiabetic drugs; Z03.818 Encounter for observation for suspected exposure to other biological agents ruled out; Z79.899 Other long term (current) drug therapy
CPT/HCPCS: 0241U; 36415; 71046; 80053; 81001; 82947; 83735; 84484; 84702; 85025; 87086; 87147; 93005; 96361; 96374; 99285

== ENCOUNTER → 2024-12-14 20:12 | Outpatient (BNV) | payer OTHER, SELFPAY | PROVIDERS: PCP Nurse Practitioner Family; Visit Provider Student in an Organized Health Care Education/Training Program | DX: R05.9 Cough, unspecified (principal) | CPT/HCPCS: 71046 ==

== ENCOUNTER → 2024-12-14 20:13 | Outpatient (BNV) | payer MEDICAID, SELFPAY | PROVIDERS: Emergency Provider Emergency Medicine; PCP Nurse Practitioner Family; Visit Provider Internal Medicine | DX: R00.0 Tachycardia, unspecified (principal) | CPT/HCPCS: 93010 ==

== ENCOUNTER 2025-06-30 08:57 | Outpatient (AMB) | payer OTHER, SELFPAY ==
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
--- OUTSIDE RECORDS SUMMARY | 2025-06-30 10:31 | XMS_ITS | Clinical Summary ---
Author Organization [facility] Address [address] [place] [address] Care Team Providers Care Vocal Performer Name Role Phone Unavailable Primary Care Provider Unavailabl e Source Comments PLEASE NOTE, if this patient is a minor, it may be UNLAWFUL to discuss sensitive information that is contained in these records (such as FAMILY PLANNING, MENTAL HEALTH or SUBSTANCE ABUSE) with the minor patient's parent or other person without the patient's specific authorization.[facility] Immunizations Immunization Administration Dates Next Due PFIZER COVID VACCINE, PURPLE CAP, 12+ 03/17/2022 Social History Tobacco Use Types Packs/Day Years Used Date Smoking Tobacco: Never Assessed Comments Unknown Sex and Gender Information Value Date Recorded Sex Assigned at Not on file Legal Sex Female 10:02 AM PDT Gender Identity Not on file Sexual Orientation Not on file Plan of Treatment Health Maintenance Due Date Last Done Comments Anxiety Screening 2001 HPV Screening 2001 Hepatitis C Screening 2001 Pap + HPV 2001 Tobacco Screening 2001 Chlamydia Screening 2014 Gonorrhea Screening 2014 Imm-Varicella (1 of 2 - 13+ 2-dose series) 2014 HIV Screening 2016 Imm-HPV (1 - 3-dose series) 2016 Relationship Safety Screening/Counseling 2016 Hypertension Screening (#1) 2019 Imm-DTaP/Tdap/Td (1 - Tdap) 2020 Imm-Hepatitis B (1 of 3 - 19+ 3-dose series) Cervical Cancer Screening 2022 Pap Smear 2022 Alcohol and Drug Screen 10/07/2024 Depression Annual Screen 10/07/2024 [id number] (2 season) 2025 022 Imm-Influenza (#1) 2025 Cervical Ablation/Cold-Knife Conization Discontinued Cervical Cryotherapy Discontinued Colposcopy Discontinued Endometrial Biopsy Discontinued Excision/Leep Discontinued HPV Genotyping Discontinued Vaginal Pap Discontinued Vulvoscopy Discontinued
--- OUTSIDE RECORDS SUMMARY | 2025-06-30 10:31 | XMS_ITS | Clinical Summary ---
Author Organization [facility] Address [address] [place] [address] Phone Care Team Providers Care Hris Analyst Name Role Phone Bernadine Wheeler ADRIANA Primary Care Provider Allergies No known active allergies Medications cyclobenzaprine (FLEXERIL) 10 mg tablet Take 1 tablet (10 mg total) by mouth 2 (two) times a day if needed for muscle spasms for up to 5 days. 10 each 5 Active ibuprofen (ADVIL,MOTRIN) 600 mg tablet Take 1 tablet (600 mg total) by mouth every 6 (six) hours if needed for mild pain, headaches or moderate pain for up to 10 days. 30 tablet 5 06/26/20 25 Active Problems No known active problems Encounters Date Type Department Care Team Description 06/16/2025 4:35 PM EDT - 06/16/2025 5:47 PM EDT Emergency [facility] Emergency [address] [place] [address] Hyperglycemia (Primary Dx); Acute nonintractable headache, unspecified headache type Discharge Disposition: Home or Self Care 05/10/2025 9:39 PM EDT - 05/11/2025 2:27 AM EDT Emergency [facility] Emergency [address] [place] [address] Polo Colorado MD Kokkinos, Erika, MD Type 2 diabetes mellitus with hyperglycemia, with long-term current use of insulin ([facility] V[facility], [facility] V28) (Primary Dx) Discharge Disposition: Home or Self Care from Last 3 Months Medical History Medical History Date Comments Asthma DM (diabetes mellitus) ([facility] V24, [facility] V28 ) HTN (hypertension) Hyperlipidemia Seizures ([facility] V24, [facility] V28) Social History Tobacco Use Types Packs/Day Years Used Date Smoking Tobacco: Never Smokeless Tobacco: Never Tobacco Cessation:Counseling Given: Not Answered Alcohol Use Standard Drinks/Week Comments Never 0 (1 standard drink = 0.6 oz pur e alcohol) Comments No Sex and Gender Information Value Date Recorded Sex Assigned at Female 06/16/2025 4:42 PM EDT Legal Sex Female 8:25 AM EST Gender Identity Female 06/16/2025 4:42 PM EDT Sexual Orientation Not on file Obstetrics History Last Filed Vital Signs Vital Sign Reading Time Taken Comments Blood Pressure 116/76 06/16/2025 5:43 PM EDT Pulse 92 06/16/2025 5:43 PM EDT Temperature 36.7 C (98.1 F) 06/16/2025 5:43 PM EDT Respiratory Rate 18 06/16/2025 5:43 PM EDT Oxygen Saturation 100% 06/16/2025 5:43 PM EDT Inhaled Oxygen Concentration - - Weight 72.6 kg (160 lb) 06/16/2025 2:24 PM EDT Height 162.6 cm (5' 4 ) 06/16/2025 2:24 PM EDT Body Mass Index 27.46 06/16/2025 2:24 PM EDT Plan of Treatment Health Maintenance Due Date Last Done Comments Gonorrhea/Chlamydia Screening 2001 Diabetes: Annual Foot Exam 2011 Diabetes: Annual Retina Eye Exam 2011 Hepatitis A Vaccines (1 of 2 - Risk 2-dose series) 2020 Cervical Cancer Screening: Pap Smear 2022 Cholesterol Screening (Lipid Panel) 09/09/2022 HIV Screening 09/09/2022 Hepatitis C Screening 09/09/2022 Social Influencers of Health Screening 09/09/2022 Depression Screening 10/07/2024 Diabetes: Annual Urine Albumin-Creatinine Ratio (uACR) 02/27/2025 Diabetes: Blood Sugar Control Test (HGBA1C) 02/27/2025 COVID-19 Vaccine ( season) 2025 03/26/2024, 11/29/2022, 03/17/2022, Additional history exists Influenza Vaccine (#1) 2025 , 11/29/2022, 09/28/2021, Additional history exists Diabetes: Annual GFR (Glomerular Filtration Rate) 06/16/2026 06/16/2025, 05/10/2025 Hypertension/CHF/CAD Annual BMP Blood Test 06/16/2026 06/16/2025, 05/10/2025 DTaP,Tdap,and Td Vaccines (7 - Td or Tdap) 09/28/2031 09/28/2021, 05/11/2013, 07/03/2005, Additional history exists Hepatitis B Vaccines Completed 07/23/2002, 2001, 2001 HIB Vaccines Completed 11/06/2002, 01/2002, 2001 IPV Vaccines Completed 07/03/2005, 01/2005, 07/23/2002, Additional history exists MMR Vaccines Completed 07/03/2005, 07/23/2002 Varicella Vaccines Completed 11/10/2013, 07/13/2002 HPV Vaccines Completed 07/09/2019, 11/0 03/2015, 12/30/2014, Additional history exists Meningococcal ACWY Vaccine Completed 07/09, 07/23/2018, 05/11/2013 Pneumococcal Vaccine: Pediatrics (0 to 5 Years) and At-Risk Patients (6 to 49 Years) Completed 11/29/2022, 11/06/2002, 07/23/2002 Meningococcal B Vaccine Aged Out No l onger eligible based on patient's age to complete this topic RSV Immunization Patients Under 20 months Aged Out No longer eligible based on patient's age to complete this topic Procedures Procedure Name Priority Date/Time Associated Diagnosis Comments POC GLUCOSE STAT 06/16/2025 5:19 PM EDT POCT GLUCOSE BLOOD Routine 06/16/2025 5: 17 PM EDT POC , URINE DIAGNOSTIC STAT 06/16/2025 3:17 PM EDT LAY URINE CULTURE TUBE Routine 06/16/20 25 3:13 PM EDT EXTRA TUBES Routine 06/16/2025 3:13 PM EDT URINALYSIS WITH REFLEX MICROSCOPIC STAT 06/16/2025 3:13 PM EDT URINALYSIS WITH REFLEX MICROSCOPIC STAT 06/16/2025 3:13 PM EDT CBC WITH AUTO DIFFERENTIAL STAT 06/16/2025 3:09 PM EDT VENOUS BLOOD GAS STAT 06/16/2025 3:0 9 PM EDT BETA HYDROXYBUTYRATE STAT 06/16/2025 3:09 PM EDT OSMOLALITY STAT 06/16/2025 3:09 PM EDT MAGNESIUM STAT 06/16/2025 3:09 PM EDT LIPASE STAT 06/16/2025 3:09 PM EDT COMPREHENSIVE METABOLIC PANEL STAT 06/16/2025 3:09 PM EDT CBC AND DIFFERENTIAL STAT 06/16/2025 3:09 PM EDT POCT GLUCOSE BLOOD Routine 06/16/2025 2: 28 PM EDT POCT GLUCOSE BLOOD Routine 05/11/2025 2: 00 AM EDT ECG ANNOTATED 05/11/2025 POCT GLUCOSE BLOOD Routine 05/10/2025 11 :47 PM EDT XR CHEST 2 VIEWS STAT 05/10/2025 11:1 4 PM EDT TROPONIN I HIGH SENSITIVITY Timed 05/10/2025 10:50 PM EDT ECG 12-LEAD STAT 05/10/2025 10:45 PM EDT POC , URINE DIAGNOSTIC STAT 05/10/2025 9:46 PM EDT URINALYSIS WITH REFLEX MICROSCOPIC STAT 05/10/2025 9:42 PM EDT URINALYSIS WITH REFLEX MICROSCOPIC STAT 05/10/2025 9:42 PM EDT VENOUS BLOOD GAS STAT 05/10/2025 9:33 PM EDT BETA HYDROXYBUTYRATE STAT 05/10/2025 9:33 PM EDT OSMOLALITY STAT 05/10/2025 9:33 PM EDT CBC WITH AUTO DIFFERENTIAL STAT 05/10/2025 9:33 PM EDT B-TYPE NATRIURETIC PEPTIDE STAT 05/10/2025 9:33 PM EDT MAGNESIUM STAT 05/10/2025 9:33 PM EDT LIPASE STAT 05/10/2025 9:33 PM EDT COMPREHENSIVE METABOLIC PANEL STAT 05/10/2025 9:33 PM EDT CBC AND DIFFERENTIAL STAT 05/10/2025 9:33 PM EDT TROPONIN I HIGH SENSITIVITY Timed 05/10/2025 9:33 PM EDT ECG 12-LEAD STAT 05/10/2025 9:27 PM EDT POCT GLUCOSE BLOOD Routine 05/10/2025 9: 15 PM EDT from Last 3 Months Results * (ABNORMAL) POC glucose manually resulted (06/16/2025 5:19 PM EDT) [facility] Glucose POC 173(A) 70 - 110 mg/dL Blood Capillary blood specimen / Unknown 06/16/2025 5:19 PM EDT us Sandi Aldridge MD POINT OF CARE TEST ENTER/EDIT OR DERABLES Final Result * (ABNORMAL) POCT Glucose, blood (06/16/2025 5:17 PM EDT) Only the most recent of5 resultswithin the time period is included. [facility] Glucose POCT 173(H) 70 - 100 mg/dL 06/16/2025 5:18 PM EDT [facility] Blood Capillary blood specimen / Unknown 06/16/2025 5:17 PM EDT 06/16/2025 5:19 PM EDT us Generic Provider Poct LAB POINT OF CARE TEST DOCKED DEVICE UNSOLICITED RESULTS Final Result [facility] [address] [place] [address], [place] [phone] * POC , urine manually resulted (06/16/2025 3:17 PM EDT) Only the most recent of2 resultswithin the time period is included. [facility] HCG, Ur POC Negative Negative POC hCG Int QC Pass? Yes Yes Urine Urine specimen obtained by clean catch procedure / Unknown 06/16/2025 3:17 PM EDT us Sandi Aldridge MD POINT OF CARE TEST ENTER/EDIT OR DERABLES Final Result * (ABNORMAL) Urinalysis with reflex microscopic (06/16/2025 3:13 PM EDT) Only the most recent of2 resultswithin the time period is included. [facility] Specific [place] Urine 1.043(H) 1.003 - 1.030 LAB URINALYSIS - AUTOMATED METHOD 06/16/2025 3:38 PM EDT [facility] pH, Urine 6.5 5.0 - 8.0 pH LAB URINALYSIS - AUTOMATED METHOD 06/16/2025 3:38 PM EDT [facility] Leukocytes, Urine Negative Negative LAB URINALYSIS - AUTOMATED METHOD 06/16/2025 3:38 PM EDT [facility] Nitrite, Urine Negative Negative LAB URINALYSIS - AUTOMATED METHOD 06/16/2025 3:38 PM EDT [facility] Protein, Urine Negative <=Trace mg/dL LAB URINALYSIS - AUTOMATED METHOD 06/16/2025 3:38 PM EDT [facility] Glucose, Urine >=1000(A) Negative mg/dL LAB URINALYSIS - AUTOMATED METHOD 06/16/2025 3:38 PM T [facility] Ketones, Urine >=80(A) Negative mg/dL LAB URINALYSIS - AUTOMATED METHOD 06/16/2025 3:38 PM T [facility] Urobilinogen , Urine 0.2 0.2 - 1.0 mg/dL LAB URINALYSIS - AUTOMATED METHOD 06/16/2025 3:38 PM T [facility] Bilirubin, Urine Negative Negative LAB URINALYSIS - AUTOMATED METHOD 06/16/2025 3:38 PM T [facility] Blood, Urine Negative Negative LAB URINALYSIS - AUTOMATED METHOD 06/16/2025 3:[address] [facility] Urine Urine specimen obtained by clean catch procedure / Unknown Non-blood Collection / Unknown 06/16/2025 3:13 PM EDT 06/16/2025 3:25 PM EDT us Sandi Aldridge MD LAB URINE ORDERABLES Final Resul t [facility] [address] [place] [address], * Lay urine culture tube (06/16/2025 3:13 PM EDT) Extra Tube Hold for add-ons. 06/16/2025 5:01 PM EDT [facility] Comment:Auto resulted. Urine Urine specimen obtained by clean catch procedure / Unknown 06/16/2025 3:13 PM EDT 06/16/2025 3:26 PM EDT us Sandi Aldridge MD LAB URINE ORDERABLES Final Resul t Performing Organization Address [facility] Co de Phone Number [facility] [address] [place] [address], [place] [phone] * (ABNORMAL) Beta hydroxybutyrate (06/16/2025 3:09 PM EDT) Only the most recent of2 resultswithin the time period is included. Pathologist [facility] Beta-Hydroxyb utyrate 24.4(H) 0.2 - 2.8 mg/dL LAB CHEMISTRY METHOD 06/16/2025 4:18 PM EDT [facility] Blood Venous blood specimen / Unknown Venipuncture / Unknown 06/16/2025 3:09 PM EDT 06/16/2025 3:21 PM EDT us Sandi Aldridge MD LAB BLOOD ORDERABLES Final Resul t Performing Organization Address [facility] Co de Phone Number [facility] [address] [place] [address], [place] [phone] * (ABNORMAL) CBC auto differential (06/16/2025 3:09 PM EDT) Only the most recent of2 resultswithin the time period is included. WBC 15.2(H) 4.8 - 10.8 K/mcL LAB HEMETOLOGY METHOD 06/16/2025 3:34 PM EDT [facility] RBC 4.60 3.80 - 4.80 M/mcL LAB HEMETOLOGY METHOD 06/16/2025 3:34 PM EDT [facility] Hemoglobin 13.3 11.5 - 16.0 g/dL LAB HEMETOLOGY METHOD 06/16/2025 3:34 PM EDT [facility] Hematocrit 40.6 35.0 - 47.0 % LAB HEMETOLOGY METHOD [facility]16[facility]25 [facility] MCV 87.7 79.0 - 98.0 FL LAB HEMETOLOGY METHOD 06/16/2025 3:[address] [facility] MCH 28.7 27.0 - 32.0 pcg LAB HEMETOLOGY METHOD 06/16/2025 3:[address] [facility] MCHC 32.8 32.0 - 37.0 g/dL LAB HEMETOLOGY METHOD 06/16/2025 3:[address] [facility] RDW 12.5 11.0 - 15.0 % LAB HEMETOLOGY METHOD 06/16/2025 3:[address] [facility] Platelets 284 130 - 400 K/mcL LAB HEMETOLOGY METHOD 06/16/2025 3:[address] [facility] MPV 12.9(H) 7.0 - 11.0 FL LAB HEMETOLOGY METHOD 06/16/2025 3:[address] [facility] NRBC 0.0 <1.0 % LAB HEMETOLOGY METHOD 06/16/2025 3:[address] [facility] NRBC Absolute 0.00 <0.10 K/mcL LAB HEMETOLOGY METHOD 06/16/2025 3:[address] [facility] Neutrophils Relative 74.2 % LAB HEMETOLOGY METHOD 06/16/2025 [facility] Lymphocytes Relative 19.9 % LAB HEMETOLOGY METHOD 06/16/2025 3:[address] [facility] Monocytes Relative 4.7 % LAB HEMETOLOGY METHOD 06/16/2025 3:[address] [facility] Eosinophils Relative 0.3 % LAB HEMETOLOGY METHOD 06/16/2025 3:34 PM EDT [facility] Basophils Relative 0.5 % LAB HEMETOLOGY METHOD 06/16/2025 3:34 PM EDT [facility] Immature Granulocytes Relative 0.4 % LAB HEMETOLOGY METHOD 06/16/2025 3:34 PM EDT [facility] Neutrophils Absolute 11.28(H) 1.50 - 7.00 K/mcL LAB HEMETOLOGY METHOD 06/16/2025 3:34 PM EDT [facility] Lymphocytes Absolute 3.02 1.00 - 5.00 K/mcL LAB HEMETOLOGY METHOD 06/16/2025 3:34 PM EDT [facility] Monocytes Absolute 0.71 0.20 - 1.00 K/mcL LAB HEMETOLOGY METHOD 06/16/2025 3:34 PM EDT [facility] Eosinophils Absolute 0.04 0.00 - 0.50 K/mcL LAB HEMETOLOGY METHOD 06/16/2025 3:34 PM EDT [facility] Basophils Absolute 0.07 0.00 - 0.20 K/mcL LAB HEMETOLOGY METHOD 06/16/2025 3:34 PM EDT [facility] Immature Granulocytes Absolute 0.06(H) 0.00 - 0.03 K/mcL LAB HEMETOLOGY METHOD 06/16/2025 3:34 PM EDT [facility] Blood Venous blood specimen / Unknown Venipuncture / Unknown 06/16/2025 3:09 PM EDT 06/16/2025 3:21 PM EDT us Sandi Aldridge MD LAB BLOOD ORDERABLES Final Resul t [facility] [address] [place] [address], * (ABNORMAL) Osmolality (06/16/2025 3:09 PM EDT) Only the most recent of2 resultswithin the time period is included. Osmolality It[place] 301(H) 280 - 300 mOsm/kg LAB CHEMISTRY METHOD 06/16/2025 5:29 PM EDT [facility] Blood Venous blood specimen / Unknown Venipuncture / Unknown 06/16/2025 3:09 PM EDT 06/16/2025 3:21 PM EDT us Sandi Aldridge MD LAB BLOOD ORDERABLES Final Resul t Performing Organization Address [facility] Co de Phone Number [facility] [address] [place] [address], [place] [phone] * Magnesium (06/16/2025 3:09 PM EDT) Only the most recent of2 resultswithin the time period is included. Magnesium 2.0 1.9 - 2.6 mg/dL LAB CHEMISTRY METHOD 06/16/2025 4:11 PM EDT [facility] Blood Venous blood specimen / Unknown Venipuncture / Unknown 06/16/2025 3:09 PM EDT 06/16/2025 3:21 PM EDT us Sandi Aldridge MD LAB BLOOD ORDERABLES Final Resul t Performing Organization Address [facility]/ZIP Co de Phone Number [facility] [address] [place] [address], [place] [phone] * Lipase (06/16/2025 3:09 PM EDT) Only the most recent of2 resultswithin the time period is included. Lipase 60 13 - 75 unit/L LAB CHEMISTRY METHOD 06/16/2025 4:11 PM EDT [facility] Blood Venous blood specimen / Unknown Venipuncture / Unknown 06/16/2025 3:09 PM EDT 06/16/2025 3:21 PM EDT Sandi Aldridge MD LAB BLOOD ORDERABLES Final Resul t Performing Organization Address City/[facility]/ZIP Co de Phone Number [facility] [address] [place] [address], [place] [phone] * Venous blood gas (06/16/2025 3:09 PM EDT) Only the most recent of2 resultswithin the time period is included. pH, Biju 7.38 7.32 - 7.42 pH 06/16/2025 3:27 PM EDT [facility] pCO2, Bjiu 43 41 - 51 mmHg 06/16/2025 3:27 PM EDT [facility] pO2, Biju 27 25 - 40 mmHg 06/16/2025 3:27 PM EDT [facility] HCO3, Venous 23.3 22.0 - 26.0 mmol/L 06/16/2025 3:27 PM EDT [facility] O2 Sat, Biju 39.8 % 06/16/2025 3:27 PM EDT [facility] Base Excess, Biju 0.0 -2.0 - 2.0 mmol/L 06/16/2025 3:27 PM EDT [facility] Blood Venous blood specimen / Unknown Venipuncture / Unknown 06/16/2025 3:09 PM EDT 06/16/2025 3:21 PM EDT Sandi Aldridge MD LAB BLOOD ORDERABLES Final Resul t [facility] [address] [place] [address], [place] [phone] * (ABNORMAL) Comprehensive metabolic panel (06/16/2025 3:09 PM EDT) Only the most recent of2 resultswithin the time period is included. Sodium 134 133 - 145 mmol/L LAB CHEMISTRY METHOD 06/16/2025 4:[address] [facility] Potassium 3.9 3.5 - 5.5 mmol/L LAB CHEMISTRY METHOD 06/16/2025 4:[address] [facility] Chloride 100 96 - 110 mmol/L LAB CHEMISTRY METHOD 06/16/2025 4:[address] [facility] CO2 24 21 - 32 mmol/L LAB CHEMISTRY METHOD 06/16/2025 4:[address] [facility] Anion Gap 10 3 - 11 LAB CHEMISTRY METHOD 06/16/2025 4:[address] [facility] Glucose 259(H) 70 - 100 mg/dL LAB CHEMISTRY METHOD 06/16/2025 4:[address] [facility] BUN 12 5 - 25 mg/dL LAB CHEMISTRY METHOD 06/16/2025 4:[address] [facility] Creatinine 0.65 0.50 - 1.10 mg/dL LAB CHEMISTRY METHOD 06/16/2025 4:[address] [facility] eGFR 126 >=60 mL/min/1. 73m2 LAB CHEMISTRY METHOD 06/16/2025 4:[address] [facility] Comment:Calculation based on the Chronic Kidney Disease Epidemiology Collaboration (CKD-EPI) equation refit without adjustment for race. BUN/Creatinine Ratio 18.5 LAB CHEMISTRY METHOD 06/16/2025 4:[address] [facility] Calcium 9.6 8.5 - 10.5 mg/dL LAB CHEMISTRY METHOD 06/16/2025 4:[address] [facility] AST (SGOT) 12 10 - 42 unit/L LAB CHEMISTRY METHOD 06/16/2025 4:[address] [facility] ALT (SGPT) 13 10 - 60 unit/L LAB CHEMISTRY METHOD 06/16/2025 4:[address] [facility] Alkaline Phosphatase 91 42 - 121 unit/L LAB CHEMISTRY METHOD 06/16/2025 4:25 PM EDT [facility] Total Protein 7.5 6.0 - 8.0 g/dL LAB CHEMISTRY METHOD 06/16/2025 4:25 PM EDT [facility] Albumin 3.6 3.2 - 5.0 g/dL LAB CHEMISTRY METHOD 06/16/2025 4:25 PM EDT [facility] Total Bilirubin 0.4 0.0 - 1.4 mg/dL LAB CHEMISTRY METHOD 06/16/2025 4:25 PM EDT [facility] Blood Venous blood specimen / Unknown Venipuncture / Unknown 06/16/2025 3:09 PM EDT 06/16/2025 3:21 PM EDT Sandi Aldridge MD LAB BLOOD ORDERABLES Final Resul t [facility] [address] [place] [address], * ECG-Annotated (05/11/2025) us Provider Onbase ECG ORDERABLES Final Result * XR Chest 2 Views (05/10/2025 11:14 PM EDT) Anatomical Region Laterality Modality Body Radiographic Liane ging 05/11/2025 7:08 AM EDT Impressions 05/11/2025 7:09 AM EDT No acute chest disease -------- FINAL REPORT -------- Dictated By: Aaron Solorio Dictated Date: 05/11/2025 07:08 ET Assigned Physician: Aaron Solorio Reviewed and Electronically Signed By: Aaron Solorio Signed Date: 05/11/2025 07:09 ET Workstation ID: [id number] Transcribed By: Self Edit Transcribed Date: 05/11/2025 07:08 ET Narrative 05/11/2025 7:09 AM EDT EXAMINATION: CHEST CLINICAL INFORMATION: Chest pain COMPARISON: Frontal view 09/07/22 TECHNIQUE: 2 views of the chest FINDINGS: The mediastinum, nika, vasculature, lungs and visualized pleural margins are within normal limits. No suspicious focal bony lesions. Procedure Note Aaron Solorio MD - 05/11/2025 EXAMINATION: CHEST CLINICAL INFORMATION: Chest pain COMPARISON: Frontal view 09/07/22 TECHNIQUE: 2 views of the chest FINDINGS: The mediastinum, nika, vasculature, lungs and visualized pleural marginsare within normal limits. No suspicious focal bony lesions. IMPRESSION: No acute chest disease -------- FINAL REPORT -------- Dictated By: Aaron Solorio Dictated Date: 05/11/2025 07:08 ET Assigned Physician: Aaron Solorio Reviewed and Electronically Signed By: Aaron Solorio Signed Date: 05/11/2025 07:09 ET Workstation ID: [id number] Transcribed By: Self Edit Transcribed Date: 05/11/2025 07:08 ET us Polo Colorado MD IMG XR PROCEDURES Final Result * Troponin I high sensitivity (05/10/2025 10:50 PM EDT) Only the most recent of2 resultswithin the time period is included. High Sensitivity Troponin I <3 <=54 ng/L LAB CHEMISTRY METHOD 05/10/2025 11:28 PM EDT [facility] Blood Venous blood specimen / Unknown Venipuncture / Unknown 05/10/2025 10:50 PM EDT 05/10/2025 11:03 PM EDT Narrative [facility] - 05/10/2025 11:28 PM EDT High levels of biotin in samples may falsely decrease hsTroponin values. Use caution when interpreting hsTroponin results in patients taking biotin who exhibit renal impairment (eGFR <60) or in patients taking more than 20 mg/day of biotin. Polo Colorado MD LAB BLOOD ORDERABLES Final Resul t [facility] [address] [place] [address], [place] [phone] * ECG 12 lead (05/10/2025 10:45 PM EDT) Only the most recent of2 resultswithin the time period is included. Ventricular Rate ECG 88 BPM GEMUSE Atrial Rate 88 BPM GEMUSE P-R Interval 146 ms GEMUSE QRS Duration 76 ms GEMUSE Q-T Interval 374 ms GEMUSE QTc 452 ms GEMUSE P Wave [place] 13 degrees GEMUSE R [place] 26 degrees GEMUSE T [place] 25 degrees GEMUSE ECG Interpretation Normal sinus rhythm Normal ECG When compared with ECG of 10-MAY-2025 21:27, (unconfirmed) No significant change was found Confirmed by MARA MUIR ([id number]) on 05/11/2025 4:08:55 PM GEMUSE 05/10/2025 10:4 5 PM EDT 05/11/2025 4:08 PM EDT Polo Colorado MD ECG ORDERABLES Final Result GEMUSE * B-type natriuretic peptide (05/10/2025 9:33 PM EDT) Pathologist [facility] BNP 12 <=100 pcg/mL LAB CHEMISTRY METHOD 05/10/2025 10:16 PM EDT [facility] Blood Venous blood specimen / Unknown Venipuncture / Unknown 05/10/2025 9:33 PM EDT 05/10/2025 9:42 PM EDT Polo Colorado MD LAB BLOOD ORDERABLES Final Resul t [facility] [address] [place] [address], [place] [phone] from Last [id number] [place] [address] [facility] MEDICAID ADVANTAGE Care Teams Hris Analyst Relationship Specialty Start Date End Date Bernadine Wheeler NP [address] [place] [address] PCP - General Internal Medicine 05/10/25
== END 2025-06-30 10:08 | disposition home or self-care (01) ==
PROVIDERS: PCP Nurse Practitioner Family; Visit Provider Nurse Practitioner Family
DX: G43.709 Chronic migraine without aura, not intractable, without status migrainosus (principal); R55 Syncope and collapse; M54.2 Cervicalgia; Z86.69 Personal history of other diseases of the nervous system and sense organs
CPT/HCPCS: 99214